=== PATIENT | male | born 1970 | race African-American/Black ===

== ENCOUNTER 2019-01-06 21:09 | Inpatient (IN) | payer SELFPAY ==
[~2019-01-06] VITALS: Ht 180.3 cm; Wt 111.6 kg
[2019-01-06] MEDS ORDERED: hydrALAZINE 20 MG/ML VIAL. IVP ONE (22:00)
[2019-01-06 22:08] LABS: BASO # 0.1 x10^3/uL (0.0-0.2); BASO % 1 % (0-3); EOS # 0.2 x10^3/uL (0.0-0.7); EOS % 2 % (0-3); HEMATOCRIT 39.7 % (39.0-53.0); HEMOGLOBIN 13.1 g/dL (13.0-17.5); LYMPH # 1.7 x10^3/uL (1.0-4.8); LYMPH % 23 % (24-48); MEAN CORPUSCULAR HEMOGLOBIN 29 pg (25-35); MEAN CORPUSCULAR HGB CONC 33 g/dL (31-37); MEAN CORPUSCULAR VOLUME 87 fL (79-100); MONO # 0.8 x10^3/uL (0.0-1.1); MONO % 11 % (0-9); NEUT # 4.6 x10^3/uL (1.8-7.7); NEUT % 63 % (31-73); PLATELET COUNT 326 x10^3/uL (140-400); RED BLOOD COUNT 4.54 x10^6/uL (4.30-5.70); RED CELL DISTRIBUTION WIDTH 16.5 % (11.5-14.5); WHITE BLOOD COUNT 7.3 x10^3/uL (4.0-11.0)
[2019-01-06 22:15] LABS: PROTHROMBIN TIME PATIENT 12.7 SEC (11.7-14.0)
[2019-01-06 22:17] LABS: CALCIUM 8.4 mg/dL (8.5-10.1); CREATININE 1.2 mg/dL (0.7-1.3); GFR 78.2; POTASSIUM 3.4 mmol/L (3.5-5.1)
--- NOTE | 2019-01-06 22:18 | RAD ---
RS Compliance Statement: One or more of the following individualized dose reduction techniques were utilized for this examination: 1. Automated exposure control 2. Adjustment of the mA and/or kV according to patient size 3. Use of iterative reconstruction technique CT head without contrast 01/06/2019 10:04 PM INDICATION: Dizziness COMPARISON: None available TECHNIQUE: Multiple axial CT images of the head were obtained from skull base through the vertex without intravenous contrast. FINDINGS: Head: Ventricles, sulci and basal cisterns are within normal limits. There is no hydrocephalus. Auguste-white matter differentiation is normal. There is no acute intracranial hemorrhage. There is no mass, mass effect or midline shift. Posterior fossa is normal in appearance. Or calcification is identified in the region of the pineal gland. There may be a pineal cyst measuring approximately 9 mm. Visualized portions of the orbits are normal. Paranasal sinuses are well aerated. Mastoid air cells are well aerated. Scalp and calvaria are normal. IMPRESSION: No acute intracranial hemorrhage. There may be a pineal cyst measuring approximately 9 mm. This may be further characterized with nonemergent MRI. Electronically signed by: Viktoria Alan MD (01/06/2019 10:16 PM) [facility]
[2019-01-06 22:23] LABS: ALBUMIN 3.2 g/dL (3.4-5.0); ALBUMIN/GLOBULIN RATIO 0.8 (1.0-1.7); MAGNESIUM 2.2 mg/dL (1.8-2.4); TOTAL BILIRUBIN 0.3 mg/dL (0.2-1.0); TOTAL PROTEIN 7.4 g/dL (6.4-8.2)
[2019-01-06 23:01] LABS: AMPHETAMINE/METHAMPHETAMINE POS (NEG); BARBITURATES NEG (NEG); BENZODIAZEPINES NEG (NEG); CANNABINOIDS NEG (NEG); COCAINE NEG (NEG); METHADONE NEG (NEG); OPIATES NEG (NEG); PHENCYCLIDINE NEG (NEG)
--- NOTE | 2019-01-06 23:08 | RAD ---
Chest radiograph 01/06/2019 9:54 PM INDICATION: Dizziness and high blood pressure COMPARISON: None available TECHNIQUE: Frontal and lateral views of the chest are provided. FINDINGS: The cardiomediastinal silhouette is within normal limits. There are no pleural effusions. There is no pulmonary vascular congestion. There is no pneumothorax. The lungs are clear. No significant osseous abnormality is identified. IMPRESSION: No acute cardiopulmonary process. Electronically signed by: Viktoria Alan MD (01/06/2019 11:05 PM) [facility]
--- NOTE | 2019-01-06 23:27 | PHYS DOC ---
Past Medical History Past Medical History: Hypertension Past Surgical History: Other Additional Past Surgical Histo: RIGHT ANKLE Alcohol Use: Sober Drug Use: Methamphetamine Social History Narrative: LAST USED METHAMPHETAMINE "1 YEAR" Adult General Chief Complaint Chief Complaint: MULTIPLE COMPLAINTS HPI HPI Patient is a 48 year old male with history of hypertension who presents with complaining of high blood pressure and paralized episodes. Patient states he had history of hypertension but for the last 6 months did not take any medication for his hypertension and feces blood pressure is high and headache. Patient also complaining of episode of paralyzed for 20 seconds for the last 2 weeks that happened several times a day and unable to move his upper and lower extremities or colic. Patient denies using drugs or alcohol or having other medical problem. Review of Systems Review of Systems Constitutional: Denies fever or chills [] Eyes: Denies change in visual acuity, redness, or eye pain [] HENT: Denies nasal congestion or sore throat [] Respiratory: Denies cough or shortness of breath [] Cardiovascular: No additional information not addressed in HPI [] GI: Denies abdominal pain, nausea, vomiting, bloody stools or diarrhea [] : Denies dysuria or hematuria [] Musculoskeletal: Denies back pain or joint pain [] Integument: Denies rash or skin lesions [] Neurologic: Denies headache, focal weakness or sensory changes [] Endocrine: Denies polyuria or polydipsia [] All other systems were reviewed and found to be within normal limits, except as documented in this note. Current Medications Current Medications Current Medications Medications (Trade) Dose Ordered Sig/Percy Start Time Stop Time Status Last Admin Dose Admin Hydralazine HCl (Apresoline Inj) 10 mg 1X ONCE 01/06/19 22:00 01/06/19 22:01 DC 01/06/19 22:45 10 MG Allergies Allergies Allergies Coded Allergies Type Severity Reaction Last Updated Verified lisinopril Allergy Unknown Swelling 01/06/19 Yes Physical Exam Physical Exam Constitutional: Well developed, well nourished, no acute distress, non-toxic appearance. [] HENT: Normocephalic, atraumatic, bilateral external ears normal, oropharynx moist, no oral exudates, nose normal. [] Eyes: PERRLA, EOMI, conjunctiva normal, no discharge. [] Neck: Normal range of motion, no tenderness, supple, no stridor. [] Cardiovascular:Heart rate regular rhythm, no murmur [] Lungs & Thorax: Bilateral breath sounds clear to auscultation [] Abdomen: Bowel sounds normal, soft, no tenderness, no masses, no pulsatile masses. [] Skin: Warm, dry, no erythema, no rash. [] Back: No tenderness, no CVA tenderness. [] Extremities: No tenderness, no cyanosis, no clubbing, ROM intact, no edema. [] Neurologic: Alert and oriented X 3, normal motor function, normal sensory function, no focal deficits noted. [] Psychologic: Affect normal, judgement normal, mood normal. [] Current Patient Data Vital Signs Vital Signs Date Time Temp Pulse Resp B/P (MAP) Pulse Ox O2 Delivery O2 Flow Rate FiO2 01/06/19 23:15 88 18 200/93 (128) 96 Room Air 01/06/19 21:17 97.8 97.8 Lab Values Laboratory Tests Test 01/06/19 21:20 01/06/19 22:44 White Blood Count 7.3 x10^3/uL (4.0-11.0) Red Blood Count 4.54 x10^6/uL (4.30-5.70) Hemoglobin 13.1 g/dL (13.0-17.5) Hematocrit 39.7 % (39.0-53.0) Mean Corpuscular Volume 87 fL (79-100) Mean Corpuscular Hemoglobin 29 pg (25-35) Mean Corpuscular Hemoglobin Concent 33 g/dL (31-37) Red Cell Distribution Width 16.5 % (11.5-14.5) H Platelet Count 326 x10^3/uL (140-400) Neutrophils (%) (Auto) 63 % (31-73) Lymphocytes (%) (Auto) 23 % (24-48) L Monocytes (%) (Auto) 11 % (0-9) H Eosinophils (%) (Auto) 2 % (0-3) Basophils (%) (Auto) 1 % (0-3) Neutrophils # (Auto) 4.6 x10^3/uL (1.8-7.7) Lymphocytes # (Auto) 1.7 x10^3/uL (1.0-4.8) Monocytes # (Auto) 0.8 x10^3/uL (0.0-1.1) Eosinophils # (Auto) 0.2 x10^3/uL (0.0-0.7) Basophils # (Auto) 0.1 x10^3/uL (0.0-0.2) Prothrombin Time 12.7 SEC (11.7-14.0) Prothrombin Time INR 1.0 (0.8-1.1) Sodium Level 144 mmol/L (136-145) Potassium Level 3.4 mmol/L (3.5-5.1) L Chloride Level 105 mmol/L (98-107) Carbon Dioxide Level 26 mmol/L (21-32) Anion Gap 13 (6-14) Blood Urea Nitrogen 10 mg/dL (8-26) Creatinine 1.2 mg/dL (0.7-1.3) Estimated GFR (Cockcroft-Gault) 78.2 BUN/Creatinine Ratio 8 (6-20) Glucose Level 148 mg/dL (70-99) H Calcium Level 8.4 mg/dL (8.5-10.1) L Magnesium Level 2.2 mg/dL (1.8-2.4) Total Bilirubin 0.3 mg/dL (0.2-1.0) Aspartate Amino Transferase (AST) 26 U/L (15-37) Alanine Aminotransferase (ALT) 23 U/L (16-63) Alkaline Phosphatase 61 U/L (46-116) Creatine Kinase 612 U/L (39-308) H Troponin I Quantitative 0.038 ng/mL (0.000-0.055) OI-Yeh-Y-Type Natriuretic Peptide 131 pg/mL (0-124) H Total Protein 7.4 g/dL (6.4-8.2) Albumin 3.2 g/dL (3.4-5.0) L Albumin/Globulin Ratio 0.8 (1.0-1.7) L Urine Opiates Screen Neg (NEG) Urine Methadone Screen Neg (NEG) Urine Barbiturates Neg (NEG) Urine Phencyclidine Screen Neg (NEG) Urine Amphetamine/Methamphetamine Pos (NEG) Urine Benzodiazepines Screen Neg (NEG) Urine Cocaine Screen Neg (NEG) Urine Cannabinoids Screen Neg (NEG) Urine Ethyl Alcohol Neg (NEG) Laboratory Tests 01/06/19 21:20 Laboratory Tests 01/06/19 21:20 EKG EKG EKG interpreted by me. EKG at 2126 showed normal sinus rhythm at rate of 78, left abrams axis, T-wave abnormalities in inferior leads, prolonged QT at 416, no acute ST and T-wave abnormalities. Radiology/Procedures Radiology/Procedures [][facility] [address] [place] [address] IMAGING REPORT Signed PATIENT: NERY TORREZ: [id number] : 1970 LOCATION: ER AGE: 48 SEX: M EXAM STATUS: REG ER ORD. PHYSICIAN: NICKI LITTLE MD REASON: dizziness and high blood pressure PROCEDURE: CHEST PA & LATERAL Chest radiograph 01/06/2019 9:54 PM INDICATION: Dizziness and high blood pressure COMPARISON: None available TECHNIQUE: Frontal and lateral views of the chest are provided. FINDINGS: The cardiomediastinal silhouette is within normal limits. There are no pleural effusions. There is no pulmonary vascular congestion. There is no pneumothorax. The lungs are clear. No significant osseous abnormality is identified. IMPRESSION: No acute cardiopulmonary process. Electronically signed by: Zenon Santiago MD (01/06/2019 11:05 PM) [facility] [address] [place] [address] IMAGING REPORT Signed PATIENT: NERY TORREZ: [id number] : 1970 LOCATION: ER AGE: 48 SEX: M EXAM STATUS: REG ER ORD. PHYSICIAN: NICKI LITTLE MD REASON: dizziness PROCEDURE: CT HEAD WO CONTRAST PQRS Compliance Statement: One or more of the following individualized dose reduction techniques were utilized for this examination: 1. Automated exposure control 2. Adjustment of the mA and/or kV according to patient size 3. Use of iterative reconstruction technique CT head without contrast 01/06/2019 10:04 PM INDICATION: Dizziness COMPARISON: None available TECHNIQUE: Multiple axial CT images of the head were obtained from skull base through the vertex without intravenous contrast. FINDINGS: Head: Ventricles, sulci and basal cisterns are within normal limits. There is no hydrocephalus. Auguste-white matter differentiation is normal. There is no acute intracranial hemorrhage. There is no mass, mass effect or midline shift. Posterior fossa is normal in appearance. Or calcification is identified in the region of the pineal gland. There may be a pineal cyst measuring approximately 9 mm. Visualized portions of the orbits are normal. Paranasal sinuses are well aerated. Mastoid air cells are well aerated. Scalp and calvaria are normal. IMPRESSION: No acute intracranial hemorrhage. There may be a pineal cyst measuring approximately 9 mm. This may be further characterized with nonemergent MRI. Electronically signed by: Zenon Santiago MD (01/06/2019 10:16 PM) [facility] DICTATED and SIGNED BY: ZENON SANTIAGO MD DATE: 01/06/192215 DICTATED and SIGNED BY: ZENON SANTIAGO MD DATE: 01/06/192304 Course & Med Decision Making Course & Med Decision Making Pertinent Labs and Imaging studies reviewed. (See chart for details) Evaluation of patient in ER showed 48-year-old male patient without taking blood pressure medication for several months and blood pressure more than 200 several checking to ER that did not get better with medication. Patient had positive methamphetamine abuse and states that he took at all today feeling better. Patient requiring admission for further evaluation and treatment. Discussed with Dr. Mackey who is in agreement with admission. Discussed findings and plan with patient and family, who acknowledge understanding and agreement. Dragon Disclaimer Dragon Disclaimer This electronic medical record was generated, in whole or in part, using a voice recognition dictation system. Departure Departure Impression: Primary Impression: Hypertensive urgency Additional Impressions: Headache Methamphetamine abuse Pineal gland cyst Disposition: ADMITTED INPATIENT (at 2324) Admitting Physician: HIMS (Dr. Mackey accepted admission) Condition: IMPROVED Referrals: NO PCP (PCP) Problem Qualifiers Additional Impressions: Headache Headache type: unspecified Headache chronicity pattern: unspecified pattern Intractability: not intractable Qualified Codes: R51 - Headache NICKI LITTLE MD Jan 06, 2019 23:27
[2019-01-06] MEDS ORDERED: KETOROLAC 30 MG/ML VIAL. IV ONE (23:30)
--- NOTE | 2019-01-07 04:08 | NUR ---
Pt.arrived from ED via w/c around 0400 w/ HTN. He is A/O x4 and will make needs known. Family @ BS.
[2019-01-07 04:29] VITALS: BP 172/87
[2019-01-07] MEDS ORDERED: ACETAMINOPHEN 325 MG TABLET. PO PRN ×2 (05:30→16:45)
--- NOTE | 2019-01-07 06:17 | EKG ---
[facility] [address] [place] [address] Test Date: 2019-01-06 Test Time: 21:26:38 Pat Name: NERY TORREZ Department: Room: [facility] Gender: M Door Attendant: : 1970 Requested By: NICKI LITTLE Order Number: [id number] Reading MD: Felipe Plaza MD Measurements Intervals Holcomb Rate: 78 P: 34 NE: 142 QRS: -11 QRSD: 92 T: -9 QT: 416 QTc: 478 Interpretive Statements SINUS RHYTHM ANTERIOR TWI SUGGESTIVE ISCHEMIA Electronically Signed On 01-08-2019 17:00:49 CDT by Felipe Plaza MD
[2019-01-07 07:00] VITALS: BP 156/80
[2019-01-07 11:07] VITALS: BP 169/91
--- NOTE | 2019-01-07 11:46 | PDOC1 ---
History and Physical Date of Admission Date of Admission DATE: 01/07/19 TIME: 11:45 Identification/Chief Complaint Chief Complaint seen in er, 48 year old male with history of hypertension who presents with complaining of high blood pressure and tia LIKE episodes. Patient states he had history of hypertension but for the last 6 months, has been noncompliant with his meds, no pcp visit x 6 months Patient also complaining of episode of being UNABLE TO MOVE for 20 seconds or speak. 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 admits to high sodium diet, weight gain Patient denies using drugs or alcohol Past Medical History Past Medical History Past Medical History Past Medical History: Hypertension Past Surgical History: Other Additional Past Surgical Histo: RIGHT ANKLE Alcohol Use: Sober Drug Use: Methamphetamine Social History Narrative: LAST USED METHAMPHETAMINE "1 YEAR" family hx obesity Family History Family History: Hypertension Social History ALCOHOL: social Drugs: Crystal meth Current Problem List Problem List Problems Medical Problems: (1) Headache Status: Acute (2) Hypertensive urgency Status: Acute (3) Methamphetamine abuse Status: Acute (4) Pineal gland cyst Status: Acute Current Medications Current Medications Current Medications Hydralazine HCl (Apresoline Inj) 10 mg 1X ONCE IVP Last administered on 01/06/19at 22:45; Start 01/06/19 at 22:00; Stop 01/06/19 at 22:01; Status DC Ketorolac Tromethamine (Toradol 30mg Vial) 30 mg 1X ONCE IV Last administered on 01/06/19at 23:43; Start 01/06/19 at 23:30; Stop 01/06/19 at 23:31; Status DC Acetaminophen (Tylenol) 650 mg PRN Q6HRS PRN PO MILD PAIN / TEMP Last admini stered on 01/07/19at 05:45; Start 01/07/19 at 05:30 Allergies Allergies: Coded Allergies: lisinopril (Verified Allergy, Unknown, Swelling, 01/06/19) ANGIOEDEMA ROS Review of System Review of Systems Review of Systems Constitutional: Denies fever or chills [] Eyes: Denies change in visual acuity, redness, or eye pain [] HENT: Denies nasal congestion or sore throat [] Respiratory: Denies cough or shortness of breath [] Cardiovascular: No additional information not addressed in HPI [] GI: Denies abdominal pain, nausea, vomiting, bloody stools or diarrhea [] : Denies dysuria or hematuria [] Musculoskeletal: Denies back pain or joint pain [] Integument: Denies rash or skin lesions [] Neurologic: Denies headache, focal weakness or sensory changes [] Endocrine: Denies polyuria or polydipsia [] 14 PT systems were reviewed and found to be within normal limits, except as documented . Physical Exam Physical Exam Physical Exam Physical Exam Constitutional: Well developed, well nourished, no acute distress, non-toxic appearance. [] HENT: Normocephalic, atraumatic, bilateral external ears normal, oropharynx moist, no oral exudates, nose normal. [] Eyes: PERRLA, EOMI, conjunctiva normal, no discharge. [] Neck: Normal range of motion, no tenderness, supple, no stridor. [] Cardiovascular:Heart rate regular rhythm, no murmur [] Lungs & Thorax: Bilateral breath sounds clear to auscultation [] Abdomen: Bowel sounds normal, soft, no tenderness, no masses, no pulsatile masses. [] Skin: Warm,lower leg patchy dry rash. [] Back: No tenderness, no CVA tenderness. [] Extremities: No tenderness, no cyanosis, no clubbing, ROM intact, no edema. [] Neurologic: Alert and oriented X 3, normal motor function, normal sensory function, no focal deficits noted. [] Psychologic: Affect normal, judgement normal, mood normal. [] General: Alert, Oriented X3, Cooperative, No acute distress HEENT: Atraumatic Lungs: Clear to auscultation Breasts: Not examined Abdomen: Normal bowel sounds, Soft Rectal Exam: not examined Extremities: No cyanosis Neuro: Normal speech, Cranial nerves 3-12 NL Psych/Mental Status: Mental status NL, Mood NL Vitals Vitals Vital Signs Date Time Temp Pulse Resp B/P (MAP) Pulse Ox O2 Delivery O2 Flow Rate FiO2 01/07/19 11:07 98.3 57 18 169/91 (117) 97 Room Air 98.3 Labs Labs Laboratory Tests Test 01/06/19 21:20 01/06/19 22:44 White Blood Count 7.3 x10^3/uL (4.0-11.0) Red Blood Count 4.54 x10^6/uL (4.30-5.70) Hemoglobin 13.1 g/dL (13.0-17.5) Hematocrit 39.7 % (39.0-53.0) Mean Corpuscular Volume 87 fL (79-100) Mean Corpuscular Hemoglobin 29 pg (25-35) Mean Corpuscular Hemoglobin Concent 33 g/dL (31-37) Red Cell Distribution Width 16.5 % (11.5-14.5) Platelet Count 326 x10^3/uL (140-400) Neutrophils (%) (Auto) 63 % (31-73) Lymphocytes (%) (Auto) 23 % (24-48) Monocytes (%) (Auto) 11 % (0-9) Eosinophils (%) (Auto) 2 % (0-3) Basophils (%) (Auto) 1 % (0-3) Neutrophils # (Auto) 4.6 x10^3/uL (1.8-7.7) Lymphocytes # (Auto) 1.7 x10^3/uL (1.0-4.8) Monocytes # (Auto) 0.8 x10^3/uL (0.0-1.1) Eosinophils # (Auto) 0.2 x10^3/uL (0.0-0.7) Basophils # (Auto) 0.1 x10^3/uL (0.0-0.2) Prothrombin Time 12.7 SEC (11.7-14.0) Prothromb Time International Ratio 1.0 (0.8-1.1) Sodium Level 144 mmol/L (136-145) Potassium Level 3.4 mmol/L (3.5-5.1) Chloride Level 105 mmol/L (98-107) Carbon Dioxide Level 26 mmol/L (21-32) Anion Gap 13 (6-14) Blood Urea Nitrogen 10 mg/dL (8-26) Creatinine 1.2 mg/dL (0.7-1.3) Estimated GFR (Cockcroft-Gault) 78.2 BUN/Creatinine Ratio 8 (6-20) Glucose Level 148 mg/dL (70-99) Calcium Level 8.4 mg/dL (8.5-10.1) Magnesium Level 2.2 mg/dL (1.8-2.4) Total Bilirubin 0.3 mg/dL (0.2-1.0) Aspartate Amino Transf (AST/SGOT) 26 U/L (15-37) Alanine Aminotransferase (ALT/SGPT) 23 U/L (16-63) Alkaline Phosphatase 61 U/L (46-116) Creatine Kinase 612 U/L (39-308) Troponin I Quantitative 0.038 ng/mL (0.000-0.055) GW-Sqy-S-Type Natriuretic Peptide 131 pg/mL (0-124) Total Protein 7.4 g/dL (6.4-8.2) Albumin 3.2 g/dL (3.4-5.0) Albumin/Globulin Ratio 0.8 (1.0-1.7) Urine Opiates Screen Neg (NEG) Urine Methadone Screen Neg (NEG) Urine Barbiturates Neg (NEG) Urine Phencyclidine Screen Neg (NEG) Urine Amphetamine/Methamphetamine Pos (NEG) Urine Benzodiazepines Screen Neg (NEG) Urine Cocaine Screen Neg (NEG) Urine Cannabinoids Screen Neg (NEG) Urine Ethyl Alcohol Neg (NEG) Laboratory Tests Test 01/06/19 21:20 01/06/19 22:44 White Blood Count 7.3 x10^3/uL (4.0-11.0) Red Blood Count 4.54 x10^6/uL (4.30-5.70) Hemoglobin 13.1 g/dL (13.0-17.5) Hematocrit 39.7 % (39.0-53.0) Mean Corpuscular Volume 87 fL (79-100) Mean Corpuscular Hemoglobin 29 pg (25-35) Mean Corpuscular Hemoglobin Concent 33 g/dL (31-37) Red Cell Distribution Width 16.5 % (11.5-14.5) Platelet Count 326 x10^3/uL (140-400) Neutrophils (%) (Auto) 63 % (31-73) Lymphocytes (%) (Auto) 23 % (24-48) Monocytes (%) (Auto) 11 % (0-9) Eosinophils (%) (Auto) 2 % (0-3) Basophils (%) (Auto) 1 % (0-3) Neutrophils # (Auto) 4.6 x10^3/uL (1.8-7.7) Lymphocytes # (Auto) 1.7 x10^3/uL (1.0-4.8) Monocytes # (Auto) 0.8 x10^3/uL (0.0-1.1) Eosinophils # (Auto) 0.2 x10^3/uL (0.0-0.7) Basophils # (Auto) 0.1 x10^3/uL (0.0-0.2) Prothrombin Time 12.7 SEC (11.7-14.0) Prothromb Time International Ratio 1.0 (0.8-1.1) Sodium Level 144 mmol/L (136-145) Potassium Level 3.4 mmol/L (3.5-5.1) Chloride Level 105 mmol/L (98-107) Carbon Dioxide Level 26 mmol/L (21-32) Anion Gap 13 (6-14) Blood Urea Nitrogen 10 mg/dL (8-26) Creatinine 1.2 mg/dL (0.7-1.3) Estimated GFR (Cockcroft-Gault) 78.2 BUN/Creatinine Ratio 8 (6-20) Glucose Level 148 mg/dL (70-99) Calcium Level 8.4 mg/dL (8.5-10.1) Magnesium Level 2.2 mg/dL (1.8-2.4) Total Bilirubin 0.3 mg/dL (0.2-1.0) Aspartate Amino Transf (AST/SGOT) 26 U/L (15-37) Alanine Aminotransferase (ALT/SGPT) 23 U/L (16-63) Alkaline Phosphatase 61 U/L (46-116) Creatine Kinase 612 U/L (39-308) Troponin I Quantitative 0.038 ng/mL (0.000-0.055) DJ-Xfa-L-Type Natriuretic Peptide 131 pg/mL (0-124) Total Protein 7.4 g/dL (6.4-8.2) Albumin 3.2 g/dL (3.4-5.0) Albumin/Globulin Ratio 0.8 (1.0-1.7) Urine Opiates Screen Neg (NEG) Urine Methadone Screen Neg (NEG) Urine Barbiturates Neg (NEG) Urine Phencyclidine Screen Neg (NEG) Urine Amphetamine/Methamphetamine Pos (NEG) Urine Benzodiazepines Screen Neg (NEG) Urine Cocaine Screen Neg (NEG) Urine Cannabinoids Screen Neg (NEG) Urine Ethyl Alcohol Neg (NEG) Images Images SEX: M EXAM STATUS: REG ER ORD. PHYSICIAN: NICKI LITTLE MD REASON: dizziness and high blood pressure PROCEDURE: CHEST PA & LATERAL Chest radiograph 01/06/2019 9:54 PM INDICATION: Dizziness and high blood pressure COMPARISON: None available TECHNIQUE: Frontal and lateral views of the chest are provided. FINDINGS: The cardiomediastinal silhouette is within normal limits. There are no pleural effusions. There is no pulmonary vascular congestion. There is no pneumothorax. The lungs are clear. No significant osseous abnormality is identified. IMPRESSION: No acute cardiopulmonary process. Electronically signed by: Viktoria Alan MD (01/06/2019 11:05 PM) [facility] PROCEDURE: CT HEAD WO CONTRAST PQRS Compliance Statement: One or more of the following individualized dose reduction techniques were utilized for this examination: 1. Automated exposure control 2. Adjustment of the mA and/or kV according to patient size 3. Use of iterative reconstruction technique CT head without contrast 01/06/2019 10:04 PM INDICATION: Dizziness COMPARISON: None available TECHNIQUE: Multiple axial CT images of the head were obtained from skull base through the vertex without intravenous contrast. FINDINGS: Head: Ventricles, sulci and basal cisterns are within normal limits. There is no hydrocephalus. Auguste-white matter differentiation is normal. There is no acute intracranial hemorrhage. There is no mass, mass effect or midline shift. Posterior fossa is normal in appearance. Or calcification is identified in the region of the pineal gland. There may be a pineal cyst measuring approximately 9 mm. Visualized portions of the orbits are normal. Paranasal sinuses are well aerated. Mastoid air cells are well aerated. Scalp and calvaria are normal. IMPRESSION: No acute intracranial hemorrhage. There may be a pineal cyst measuring approximately 9 mm. This may be further characterized with nonemergent MRI. Electronically signed by: Viktoria Alan MD (01/06/2019 10:16 PM) [facility] VTE Prophylaxis Ordered VTE Prophylaxis Devices: No VTE Pharmacological Prophylaxi: Yes Assessment/Plan Assessment/Plan IMPRESSION: No acute intracranial hemorrhage. 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 This may be further characterized with nonemergent MRI. morbid obesity HX METH ABUSE POS IN URINE noncompliance PLAN IV BP CONTROL ADMIT Neurology consult, suspect stroke like symptoms tele echo UDS NORVASC 5 MG PO DAILY HCTZ 12.5 MG PO DAILY LOW NA INTAKE DVT PROPHYLAXIS neurochecks q 4 hrs cardiology consult PT/OT/ST 76 MIN PT EXAM, CHART REVIEW, > 50% OF TIME SPENT WITH EXAM, CHART REVIEW, PT CARE COORDINATION JEN JIMENEZ MD Jan 07, 2019 11:46
[2019-01-07 15:00] VITALS: BP 168/101
[2019-01-07] MEDS ORDERED: ALBUTEROL SULFATE 2.5 MG/3 ML NEBU. NEB PRN (16:45)
[2019-01-07] MEDS ORDERED: MAG HYDROX/ALUMINUM HYD/SIMETH 30 ML ORAL.SUSP PO PRN (16:45)
[2019-01-07] MEDS ORDERED: SODIUM PHOSPHATES 19/7GM 133 ML ENEMA. PR PRN (16:45)
[2019-01-07] MEDS ORDERED: amLODIPine BESYLATE 5 MG TABLET PO ONE (16:45)
[2019-01-07] MEDS ORDERED: 0.9 % SODIUM CHLORIDE 10 ML DISP.SYRIN. IV PRN (16:45)
[2019-01-07] MEDS ORDERED: cloNIDine HCL 0.1 MG TABLET PO PRN (16:45)
[2019-01-07] MEDS ORDERED: DOCUSATE SODIUM 100 MG CAPSULE. PO PRN (16:45)
[2019-01-07] MEDS ORDERED: guaiFENesin ORAL 200 MG/10 ML LIQUID. PO PRN (16:45)
[2019-01-07] MEDS ORDERED: ONDANSETRON PF 4 MG/2 ML VIAL. IV PRN (16:45)
[2019-01-07] MEDS ORDERED: LORazepam 0.5 MG TABLET PO PRN (16:45)
[2019-01-07] MEDS ORDERED: POTASSIUM CHLORIDE 20 MEQ TABLET.ER. PO ONE (17:00)
[2019-01-07 19:47] VITALS: BP 168/82
[2019-01-07] MEDS ORDERED: ENOXAPARIN 40 MG/0.4 ML SYRINGE. SQ SCH (21:00)
[2019-01-07 23:04] VITALS: BP 160/82
[2019-01-08 03:59] VITALS: BP 154/100
[2019-01-08 05:54] LABS: CALCIUM 8.3 mg/dL (8.5-10.1); CREATININE 1.1 mg/dL (0.7-1.3); GFR 86.4; POTASSIUM 3.8 mmol/L (3.5-5.1)
[2019-01-08 07:57] VITALS: BP 154/83
[2019-01-08] MEDS ORDERED: POTASSIUM CHLORIDE 20 MEQ TABLET.ER. PO SCH (08:00)
[2019-01-08] MEDS ORDERED: amLODIPine BESYLATE 5 MG TABLET PO SCH (09:00)
--- NOTE | 2019-01-08 09:57 | PDOC ---
PROGRESS NOTES History of Present Illness History of Present Illness VTE Prophylaxis Ordered VTE Prophylaxis Devices: No VTE Pharmacological Prophylaxi: Yes Assessment/Plan Assessment/Plan IMPRESSION: No acute intracranial hemorrhage. 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 This may be further characterized with nonemergent MRI. morbid obesity HX METH ABUSE POS IN URINE noncompliance PLAN IV BP CONTROL ADMIT Neurology consult, suspect stroke like symptoms tele echo UDS NORVASC 5 MG PO DAILY HCTZ 12.5 MG PO DAILY LOW NA INTAKE DVT PROPHYLAXIS neurochecks q 4 hrs cardiology consult PT/OT/ST 36 MIN PT EXAM, CHART REVIEW, > 50% OF TIME SPENT WITH EXAM, CHART REVIEW, PT CARE COORDINATION Vitals Vitals Vital Signs Date Time Temp Pulse Resp B/P (MAP) Pulse Ox O2 Delivery O2 Flow Rate FiO2 01/08/19 09:11 70 154/83 01/08/19 08:00 Room Air 01/08/19 07:57 98.4 20 99 98.4 Physical Exam General: Alert, Oriented X3, Cooperative, No acute distress Heart: Regular rate, Normal S1 Lungs: Clear Abdomen: Normal bowel sounds, Soft Extremities: No clubbing, No cyanosis, No edema Labs LABS TDI E/Lateral E' 7.8 E/Medial E' 10.0 Pulmonary Valve PV Peak Velocity 116.4cm/s PV Peak Grad. 5mmHg Tricuspid Valve TR P. Velocity 288cm/s RAP ESTIMATE 3mmHg TR Peak Gr. 38mmHg RVSP 41mmHg Pulmonary Vein S1 Velocity 57.0cm/s D2 Velocity 58.7cm/s PVa duration 141msec LEFT VENTRICLE The Left Ventricle is mildly dilated. There is moderate concentric left ventricular hypertrophy. The left ventricular systolic function is normal and the ejection fraction is within normal range. The Ejection Fraction is 55-60%. There is normal LV segmental wall motion. Transmitral Doppler flow pattern is Grade II-pseudonormal filling dynamics. RIGHT VENTRICLE The right ventricle is mildly dilated. The right ventricle is mildly hypertrophied. The right ventricular systolic function is normal. ATRIA The left atrium is mildly dilated. The right atrium size is normal. The interatrial septum is intact with no evidence for an atrial septal defect or patent foramen ovale as noted on 2-D or Doppler imaging. AORTIC VALVE The aortic valve is normal in structure and function. Doppler and Color Flow revealed trace aortic regurgitation. There is no significant aortic valvular stenosis. MITRAL VALVE The mitral valve is normal in structure and function. There is no evidence of mitral valve prolapse. There is no mitral valve stenosis. Doppler and Color-flow revealed trace mitral regurgitation. TRICUSPID VALVE The tricuspid valve is normal in structure and function. Doppler and Color Flow revealed trace tricuspid regurgitation with an estiamted PAP of 41 mmHg. There is mild pulmonary hypertension. There is no tricuspid valve stenosis. PULMONIC VALVE The pulmonary valve is normal in structure and function. Doppler and Color Flow revealed trace pulmonic valvular regurgitation. There is no pulmonic valvular stenosis. GREAT VESSELS The aortic root is normal in size. The IVC is normal in size and collapses >50% with inspiration. PERICARDIAL EFFUSION There is no evidence of significant pericardial effusion. Critical Notification Critical Value: No <Conclusion> There is moderate concentric left ventricular hypertrophy. The left ventricular systolic function is normal and the ejection fraction is within normal range. The Ejection Fraction is 55-60%. There is normal LV segmental wall motion. The right ventricle is mildly dilated. Doppler and Color Flow revealed trace tricuspid regurgitation with an estiamted PAP of 41 mmHg. There is mild pulmonary hypertension. Signed by : Chay Mcclain, Electronically Approved : 01/08/2019 10:19:41 DICTATED and SIGNED BY: CHAY MCCLAIN MD DATE: 01/08/19 1019 Laboratory Tests Test 01/07/19 18:30 01/08/19 04:30 Troponin I Quantitative 0.018 ng/mL (0.000-0.055) Sodium Level 142 mmol/L (136-145) Potassium Level 3.8 mmol/L (3.5-5.1) Chloride Level 105 mmol/L (98-107) Carbon Dioxide Level 28 mmol/L (21-32) Anion Gap 9 (6-14) Blood Urea Nitrogen 11 mg/dL (8-26) Creatinine 1.1 mg/dL (0.7-1.3) Estimated GFR (Cockcroft-Gault) 86.4 Glucose Level 146 mg/dL (70-99) Calcium Level 8.3 mg/dL (8.5-10.1) Assessment and Plan Assessmemt and Plan Problems Medical Problems: (1) Headache Status: Acute (2) Hypertensive urgency Status: Acute (3) Methamphetamine abuse Status: Acute (4) Pineal gland cyst Status: Acute Comment Review of Relevant I have reviewed the following items violeta (where applicable) has been applied. Labs Laboratory Tests Test 01/06/19 21:20 01/06/19 22:44 01/07/19 18:30 01/08/19 04:30 White Blood Count 7.3 x10^3/uL (4.0-11.0) Red Blood Count 4.54 x10^6/uL (4.30-5.70) Hemoglobin 13.1 g/dL (13.0-17.5) Hematocrit 39.7 % (39.0-53.0) Mean Corpuscular Volume 87 fL (79-100) Mean Corpuscular Hemoglobin 29 pg (25-35) Mean Corpuscular Hemoglobin Concent 33 g/dL (31-37) Red Cell Distribution Width 16.5 % (11.5-14.5) Platelet Count 326 x10^3/uL (140-400) Neutrophils (%) (Auto) 63 % (31-73) Lymphocytes (%) (Auto) 23 % (24-48) Monocytes (%) (Auto) 11 % (0-9) Eosinophils (%) (Auto) 2 % (0-3) Basophils (%) (Auto) 1 % (0-3) Neutrophils # (Auto) 4.6 x10^3/uL (1.8-7.7) Lymphocytes # (Auto) 1.7 x10^3/uL (1.0-4.8) Monocytes # (Auto) 0.8 x10^3/uL (0.0-1.1) Eosinophils # (Auto) 0.2 x10^3/uL (0.0-0.7) Basophils # (Auto) 0.1 x10^3/uL (0.0-0.2) Prothrombin Time 12.7 SEC (11.7-14.0) Prothromb Time International Ratio 1.0 (0.8-1.1) Sodium Level 144 mmol/L (136-145) 142 mmol/L (136-145) Potassium Level 3.4 mmol/L (3.5-5.1) 3.8 mmol/L (3.5-5.1) Chloride Level 105 mmol/L (98-107) 105 mmol/L (98-107) Carbon Dioxide Level 26 mmol/L (21-32) 28 mmol/L (21-32) Anion Gap 13 (6-14) 9 (6-14) Blood Urea Nitrogen 10 mg/dL (8-26) 11 mg/dL (8-26) Creatinine 1.2 mg/dL (0.7-1.3) 1.1 mg/dL (0.7-1.3) Estimated GFR (Cockcroft-Gault) 78.2 86.4 BUN/Creatinine Ratio 8 (6-20) Glucose Level 148 mg/dL (70-99) 146 mg/dL (70-99) Calcium Level 8.4 mg/dL (8.5-10.1) 8.3 mg/dL (8.5-10.1) Magnesium Level 2.2 mg/dL (1.8-2.4) Total Bilirubin 0.3 mg/dL (0.2-1.0) Aspartate Amino Transf (AST/SGOT) 26 U/L (15-37) Alanine Aminotransferase (ALT/SGPT) 23 U/L (16-63) Alkaline Phosphatase 61 U/L (46-116) Creatine Kinase 612 U/L (39-308) Troponin I Quantitative 0.038 ng/mL (0.000-0.055) 0.018 ng/mL (0.000-0.055) RK-Vfo-Z-Type Natriuretic Peptide 131 pg/mL (0-124) Total Protein 7.4 g/dL (6.4-8.2) Albumin 3.2 g/dL (3.4-5.0) Albumin/Globulin Ratio 0.8 (1.0-1.7) Urine Opiates Screen Neg (NEG) Urine Methadone Screen Neg (NEG) Urine Barbiturates Neg (NEG) Urine Phencyclidine Screen Neg (NEG) Urine Amphetamine/Methamphetamine Pos (NEG) Urine Benzodiazepines Screen Neg (NEG) Urine Cocaine Screen Neg (NEG) Urine Cannabinoids Screen Neg (NEG) Urine Ethyl Alcohol Neg (NEG) Laboratory Tests Test 01/07/19 18:30 01/08/19 04:30 Troponin I Quantitative 0.018 ng/mL (0.000-0.055) Sodium Level 142 mmol/L (136-145) Potassium Level 3.8 mmol/L (3.5-5.1) Chloride Level 105 mmol/L (98-107) Carbon Dioxide Level 28 mmol/L (21-32) Anion Gap 9 (6-14) Blood Urea Nitrogen 11 mg/dL (8-26) Creatinine 1.1 mg/dL (0.7-1.3) Estimated GFR (Cockcroft-Gault) 86.4 Glucose Level 146 mg/dL (70-99) Calcium Level 8.3 mg/dL (8.5-10.1) Medications Current Medications Hydralazine HCl (Apresoline Inj) 10 mg 1X ONCE IVP Last administered on 01/06/19at 22:45; Start 01/06/19 at 22:00; Stop 01/06/19 at 22:01; Status DC Ketorolac Tromethamine (Toradol 30mg Vial) 30 mg 1X ONCE IV Last administered on 01/06/19at 23:43; Start 01/06/19 at 23:30; Stop 01/06/19 at 23:31; Status DC Acetaminophen (Tylenol) 650 mg PRN Q6HRS PRN PO MILD PAIN / TEMP Last administered on 01/07/19at 05:45; Start 01/07/19 at 05:30; Stop 01/07/19 at 16:51; Status DC Amlodipine Besylate (Norvasc) 5 mg 1X ONCE PO Last administered on 01/07/19at 16:39; Start 01/07/19 at 16:45; Stop 01/07/19 at 16:46; Status DC Amlodipine Besylate (Norvasc) 5 mg DAILY PO Last administered on 01/08/19at 09:11; Start 01/08/19 at 09:00 Sodium Chloride (Normal Saline Flush) 3 ml QSHIFT PRN IV AFTER MEDS AND BLOOD DRAWS; Start 01/07/19 at 16:45 Ondansetron HCl (Zofran) 4 mg PRN Q4HRS PRN IV NAUSEA/VOMITING; Start 01/07/19 at 16:45 Acetaminophen (Tylenol) 650 mg PRN Q4HRS PRN PO TEMP OVER 100.4F OR MILD PAIN; Start 01/07/19 at 16:45 Al Hydroxide/Mg Hydroxide (Mylanta Plus Xs) 30 ml PRN DAILY PRN PO HEARTBURN / GAS; Start 01/07/19 at 16:45 Clonidine HCl (Catapres) 0.1 mg PRN Q6HRS PRN PO SBP>160 OR DBP>90; Start 01/07/19 at 16:45 Sodium Monofluorophosphate (Fleet Adult) 133 ml PRN DAILY PRN ME CONSTIPATION; Start 01/07/19 at 16:45 Docusate Sodium (Colace) 100 mg PRN BID PRN PO CONSTIPATION; Start 01/07/19 at 16:45 Albuterol Sulfate (Ventolin Neb Soln) 2.5 mg PRN Q4HRS PRN NEB SHORTNESS OF BREATH; Start 01/07/19 at 16:45 Guaifenesin (Robitussin) 200 mg PRN Q4HRS PRN PO COUGH; Start 01/07/19 at 16:45 Lorazepam (Ativan) 0.5 mg PRN Q4HRS PRN PO ANXIETY / AGITATION; Start 01/07/19 at 16:45 Enoxaparin Sodium (Lovenox 40mg Syringe) 40 mg QHS SQ Last administered on 01/07/19at 21:03; Start 01/07/19 at 21:00 Potassium Chloride (Klor-Con) 40 meq 1X ONCE PO Last administered on 01/07/19at 18:18; Start 01/07/19 at 17:00; Stop 01/07/19 at 17:01; Status DC Potassium Chloride (Klor-Con) 20 meq DAILYWBKFT PO Last administered on at 09:11; Start 01/08/19 at 08:00 Vitals/I & O Vital Sign - Last 24 Hours 01/07/19 01/07/19 01/07/19 01/07/19 11:07 15:00 16:39 19:45 Temp 98.3 98.2 98.3 98.2 Pulse 57 63 63 Resp 18 16 B/P (MAP) 169/91 (117) 168/101 (123) 168/101 Pulse Ox 97 95 O2 Delivery Room Air Room Air Room Air 01/07/19 01/07/19 01/08/19 01/08/19 19:47 23:04 03:59 07:57 Temp 98.2 98.2 97.6 98.4 98.2 98.2 97.6 98.4 Pulse 65 68 73 70 Resp 20 20 20 20 B/P (MAP) 168/82 (110) 160/82 (108) 154/100 (118) 154/83 (106) Pulse Ox 98 98 98 99 O2 Delivery Room Air Room Air Room Air Room Air 01/08/19 01/08/19 08:00 09:11 Pulse 70 B/P (MAP) 154/83 O2 Delivery Room Air Intake and Output 01/07/19 01/07/19 01/08/19 14:59 22:59 06:59 Intake Total 650 ml 310 ml 520 ml Output Total 900 ml Balance -250 ml 310 ml 520 ml JEN JIMENEZ MD Jan 08, 2019 09:57
--- NOTE | 2019-01-08 10:20 | CARD ---
MR#: [id number] Date of Study: 01/08/2019 Ordering Physician: JEN JIMENEZ, Referring Physician: Cj FRANZ: Tory Garland APPROVED REPORT EXAM: Two-dimensional and M-mode echocardiogram with Doppler and color Doppler. Other Information Quality : GoodHR: 49bpm INDICATION Hypertension/HCVD RISK FACTORS Hypertension 2D DIMENSIONS RVDd3.4 (2.9-3.5cm)Left Atrium(2D)4.5 (1.6-4.0cm) IVSd1.4 (0.7-1.1cm)Aortic Root(2D)3.3 (2.0-3.7cm) LVDd6.1 (3.9-5.9cm)LVOT Diameter2.2 (1.8-2.4cm) PWd1.3 (0.7-1.1cm)LVDs3.9 (2.5-4.0cm) FS (%) 36.5 %SV123.0 ml LVEF(%)65.3 (>50%) Aortic Valve AoV Peak Charly.153.8cm/sAoV VTI29.8cm AO Peak GR.9.5mmHgLVOT Peak Charly.94.8cm/s LVOT VTI 21.84cmAO Mean GR.4mmHg JULITA (VMAX)1.59hv3QPW (VTI)2.87cm2 Mitral Valve MV E Tbpcilvt27.3cm/sMV DECEL ESXG115dr MV A Dfuxssnb28.6cm/sMV BHQ51dd E/A Ratio1.3MVA (PHT)3.85cm2 TDI E/Lateral E'7.8E/Medial E'10.0 Pulmonary Valve PV Peak Bqwjwhth008.4cm/sPV Peak Grad.5mmHg Tricuspid Valve TR P. Igrhlerl510wm/sRAP BKPDEUTR1rpKd TR Peak Gr.45aoGcMQSO59txZo Pulmonary Vein S1 Pbxcxnjt97.0cm/sD2 Tjejryjv26.7cm/s PVa vgipnlqq832zlby LEFT VENTRICLE The Left Ventricle is mildly dilated. There is moderate concentric left ventricular hypertrophy. The left ventricular systolic function is normal and the ejection fraction is within normal range. The Ej ection Fraction is 55-60%. There is normal LV segmental wall motion. Transmitral Doppler flow pattern is Grade II-pseudonormal filling dynamics. RIGHT VENTRICLE The right ventricle is mildly dilated. The right ventricle is mildly hypertrophied. The right ventric ular systolic function is normal. ATRIA The left atrium is mildly dilated. The right atrium size is normal. The interatrial septum is intact with no evidence for an atrial septal defect or patent foramen ovale as noted on 2-D or Doppler imagi ng. AORTIC VALVE The aortic valve is normal in structure and function. Doppler and Color Flow revealed trace aortic re gurgitation. There is no significant aortic valvular stenosis. MITRAL VALVE The mitral valve is normal in structure and function. There is no evidence of mitral valve prolapse. There is no mitral valve stenosis. Doppler and Color-flow revealed trace mitral regurgitation. TRICUSPID VALVE The tricuspid valve is normal in structure and function. Doppler and Color Flow revealed trace tricus pid regurgitation with an estiamted PAP of 41 mmHg. There is mild pulmonary hypertension. There is no tricuspid valve stenosis. PULMONIC VALVE The pulmonary valve is normal in structure and function. Doppler and Color Flow revealed trace pulmon ic valvular regurgitation. There is no pulmonic valvular stenosis. GREAT VESSELS The aortic root is normal in size. The IVC is normal in size and collapses >50% with inspiration. PERICARDIAL EFFUSION There is no evidence of significant pericardial effusion. Critical Notification Critical Value: No <Conclusion> There is moderate concentric left ventricular hypertrophy. The left ventricular systolic function is normal and the ejection fraction is within normal range. Th e Ejection Fraction is 55-60%. There is normal LV segmental wall motion. The right ventricle is mildly dilated. Doppler and Color Flow revealed trace tricuspid regurgitation with an estiamted PAP of 41 mmHg. There is mild pulmonary hypertension. Signed by : Felipe Plaza, Electronically Approved : 01/08/2019 10:19:41
--- NOTE | 2019-01-08 10:20 | NUR ---
SW following pt for dc needs. Chart reviewed and discussed with RN. Pt lives at home and was seen by PAT team yesterday due to Meth use. Pt states he was sober for 1.5 years after treatment. Denies mental health hx expect life stressors. Pt is provided with NA, AA, RADACC and community resources. No other needs noted at this time.
[2019-01-08 11:29] VITALS: BP 149/79
--- NOTE | 2019-01-08 14:26 | RAD ---
BRAIN W/O CONTRAST History: TIA. Hypertensive encephalopathy. Technique: Multiplanar, multi sequential MR imaging was performed of the brain without contrast. Comparison: CT January 06, 2019 Findings: No acute infarct. No intracranial hemorrhage. No mass effect. No hydrocephalus. Extra-axial spaces are unremarkable. Incidentally noted pineal cyst measures 8 mm. Imaged orbits are unremarkable. Imaged paranasal sinuses and mastoid air cells are clear. Impression: 1. No acute intracranial abnormality. 2. Incidental pineal cyst. Electronically signed by: Cristian Antoine DO (01/08/2019 2:22 PM) [id number]
--- NOTE | 2019-01-08 15:24 | PDOC2 ---
NEUROLOGY CONSULT Date of Admission Date of Admission DATE: 01/08/19 TIME: 15:21 Reason for Consult Reason for Consult: Neurologic symptoms Referring Physician Referring Physician: Dr. Alvarado Source Source: Chart review, Patient History of Present Illness History of Present Illness The patient is a 48-year-old right-handed male with history of hypertension who admits he has not been taking his medications. Over the last several days he has had episodes of waking up from a nap and feeling that he cannot move or speak. He has a mild headache, blurred vision, and occasional numbness. He was found to have elevated blood pressure in the emergency department and is feeling better today. There is no history of stroke, seizure, head injury, and he denies any other symptoms of narcolepsy. Past Medical History Cardiovascular: HTN Past Surgical History Past Surgical History: Other (right ankle) Family History Family History: No pertinent hx Social History Social History nutrition services worker, denies alcohol, tobacco, street drugs Current Medications Current Medications Current Medications Hydralazine HCl (Apresoline Inj) 10 mg 1X ONCE IVP Last administered on 01/06/19at 22:45; Start 01/06/19 at 22:00; Stop 01/06/19 at 22:01; Status DC Ketorolac Tromethamine (Toradol 30mg Vial) 30 mg 1X ONCE IV Last administered on 01/06/19at 23:43; Start 01/06/19 at 23:30; Stop 01/06/19 at 23:31; Status DC Acetaminophen (Tylenol) 650 mg PRN Q6HRS PRN PO MILD PAIN / TEMP Last administered on 01/07/19at 05:45; Start 01/07/19 at 05:30; Stop 01/07/19 at 16:51; Status DC Amlodipine Besylate (Norvasc) 5 mg 1X ONCE PO Last administered on 01/07/19at 16:39; Start 01/07/19 at 16:45; Stop 01/07/19 at 16:46; Status DC Amlodipine Besylate (Norvasc) 5 mg DAILY PO Last administered on 01/08/19at 09:11; Start 01/08/19 at 09:00 Sodium Chloride (Normal Saline Flush) 3 ml QSHIFT PRN IV AFTER MEDS AND BLOOD DRAWS; Start 01/07/19 at 16:45 Ondansetron HCl (Zofran) 4 mg PRN Q4HRS PRN IV NAUSEA/VOMITING; Start 01/07/19 at 16:45 Acetaminophen (Tylenol) 650 mg PRN Q4HRS PRN PO TEMP OVER 100.4F OR MILD PAIN; Start 01/07/19 at 16:45 Al Hydroxide/Mg Hydroxide (Mylanta Plus Xs) 30 ml PRN DAILY PRN PO HEARTBURN / GAS; Start 01/07/19 at 16:45 Clonidine HCl (Catapres) 0.1 mg PRN Q6HRS PRN PO SBP>160 OR DBP>90; Start 01/07/19 at 16:45 Sodium Monofluorophosphate (Fleet Adult) 133 ml PRN DAILY PRN ID CONSTIPATION; Start 01/07/19 at 16:45 Docusate Sodium (Colace) 100 mg PRN BID PRN PO CONSTIPATION; Start 01/07/19 at 16:45 Albuterol Sulfate (Ventolin Neb Soln) 2.5 mg PRN Q4HRS PRN NEB SHORTNESS OF B REATH; Start 01/07/19 at 16:45 Guaifenesin (Robitussin) 200 mg PRN Q4HRS PRN PO COUGH; Start 01/07/19 at 16:45 Lorazepam (Ativan) 0.5 mg PRN Q4HRS PRN PO ANXIETY / AGITATION; Start 01/07/19 at 16:45 Enoxaparin Sodium (Lovenox 40mg Syringe) 40 mg QHS SQ Last administered on 01/07/19at 21:03; Start 01/07/19 at 21:00 Potassium Chloride (Klor-Con) 40 meq 1X ONCE PO Last administered on 01/07/19at 18:18; Start 01/07/19 at 17:00; Stop 01/07/19 at 17:01; Status DC Potassium Chloride (Klor-Con) 20 meq DAILYWBKFT PO Last administered on 01/08/19at 09:11; Start 01/08/19 at 08:00 Allergies Allergies: Coded Allergies: lisinopril (Verified Allergy, Unknown, Swelling, 01/06/19) ANGIOEDEMA ROS Review of System Negative for fever, chills, weight loss, shortness of breath, chest pain, indigestion, hematochezia, melena, and dysuria. Full 14-point review of systems is negative. Physical Exam Physical Examination General: Well-developed, well-nourished black male in no acute distress HEENT: Normocephalic and�atraumatic. Temporal arteries�pulsatile and nontender.�Fundoscopic exam unremarkable Neck: Supple without bruit, no meningismus� Musculoskeletal: Stability:�see neurologic. Gait exam:�see neurologic. Tone:�see neurologic.�Strength:�see neurologic.� Neurological: Mental Status:�intact, orientation, memory, attention span/concentration, language, fund of knowledge normal. Cranial Nerves:�Pupils equal and reactive to light, extraocular movements are�intact, visual dunlap are full to confrontation. Facial sensation is normal. There is no facial asymmetry. Vestibulo-ocular reflex is intact. Palate elevates and tongue protrudes in midline. All other cranial related problems are negative except as mentioned before.�Reflexes:�2+ and symmetric with flexor plantar responses. Motor:�5/5 strength with normal tone and bulk. Coordination:�Finger-nose finger and pore-bq-pmmb testing are normal. Rapid alternating movements and fine finger movements are intact. Gait:�Normal, including tandem. Sensory:�Normal pinprick, vibration, light touch, proprioception.� Vitals VITALS Vital Signs Date Time Temp Pulse Resp B/P (MAP) Pulse Ox O2 Delivery O2 Flow Rate FiO2 01/08/19 11:29 98.0 72 18 149/79 (102) 97 Room Air 98.0 Labs Labs Laboratory Tests Test 01/06/19 21:20 01/06/19 22:44 01/07/19 18:30 01/08/19 04:30 White Blood Count 7.3 x10^3/uL (4.0-11.0) Red Blood Count 4.54 x10^6/uL (4.30-5.70) Hemoglobin 13.1 g/dL (13.0-17.5) Hematocrit 39.7 % (39.0-53.0) Mean Corpuscular Volume 87 fL (79-100) Mean Corpuscular Hemoglobin 29 pg (25-35) Mean Corpuscular Hemoglobin Concent 33 g/dL (31-37) Red Cell Distribution Width 16.5 % (11.5-14.5) Platelet Count 326 x10^3/uL (140-400) Neutrophils (%) (Auto) 63 % (31-73) Lymphocytes (%) (Auto) 23 % (24-48) Monocytes (%) (Auto) 11 % (0-9) Eosinophils (%) (Auto) 2 % (0-3) Basophils (%) (Auto) 1 % (0-3) Neutrophils # (Auto) 4.6 x10^3/uL (1.8-7.7) Lymphocytes # (Auto) 1.7 x10^3/uL (1.0-4.8) Monocytes # (Auto) 0.8 x10^3/uL (0.0-1.1) Eosinophils # (Auto) 0.2 x10^3/uL (0.0-0.7) Basophils # (Auto) 0.1 x10^3/uL (0.0-0.2) Prothrombin Time 12.7 SEC (11.7-14.0) Prothromb Time International Ratio 1.0 (0.8-1.1) Sodium Level 144 mmol/L (136-145) 142 mmol/L (136-145) Potassium Level 3.4 mmol/L (3.5-5.1) 3.8 mmol/L (3.5-5.1) Chloride Level 105 mmol/L (98-107) 105 mmol/L (98-107) Carbon Dioxide Level 26 mmol/L (21-32) 28 mmol/L (21-32) Anion Gap 13 (6-14) 9 (6-14) Blood Urea Nitrogen 10 mg/dL (8-26) 11 mg/dL (8-26) Creatinine 1.2 mg/dL (0.7-1.3) 1.1 mg/dL (0.7-1.3) Estimated GFR (Cockcroft-Gault) 78.2 86.4 BUN/Creatinine Ratio 8 (6-20) Glucose Level 148 mg/dL (70-99) 146 mg/dL (70-99) Calcium Level 8.4 mg/dL (8.5-10.1) 8.3 mg/dL (8.5-10.1) Magnesium Level 2.2 mg/dL (1.8-2.4) Total Bilirubin 0.3 mg/dL (0.2-1.0) Aspartate Amino Transf (AST/SGOT) 26 U/L (15-37) Alanine Aminotransferase (ALT/SGPT) 23 U/L (16-63) Alkaline Phosphatase 61 U/L (46-116) Creatine Kinase 612 U/L (39-308) Troponin I Quantitative 0.038 ng/mL (0.000-0.055) 0.018 ng/mL (0.000-0.055) SQ-Obt-R-Type Natriuretic Peptide 131 pg/mL (0-124) Total Protein 7.4 g/dL (6.4-8.2) Albumin 3.2 g/dL (3.4-5.0) Albumin/Globulin Ratio 0.8 (1.0-1.7) Urine Opiates Screen Neg (NEG) Urine Methadone Screen Neg (NEG) Urine Barbiturates Neg (NEG) Urine Phencyclidine Screen Neg (NEG) Urine Amphetamine/Methamphetamine Pos (NEG) Urine Benzodiazepines Screen Neg (NEG) Urine Cocaine Screen Neg (NEG) Urine Cannabinoids Screen Neg (NEG) Urine Ethyl Alcohol Neg (NEG) Laboratory Tests Test 01/07/19 18:30 01/08/19 04:30 Troponin I Quantitative 0.018 ng/mL (0.000-0.055) Sodium Level 142 mmol/L (136-145) Potassium Level 3.8 mmol/L (3.5-5.1) Chloride Level 105 mmol/L (98-107) Carbon Dioxide Level 28 mmol/L (21-32) Anion Gap 9 (6-14) Blood Urea Nitrogen 11 mg/dL (8-26) Creatinine 1.1 mg/dL (0.7-1.3) Estimated GFR (Cockcroft-Gault) 86.4 Glucose Level 146 mg/dL (70-99) Calcium Level 8.3 mg/dL (8.5-10.1) Images Images BRAIN W/O CONTRAST History: TIA. Hypertensive encephalopathy. Technique: Multiplanar, multi sequential MR imaging was performed of the brain without contrast. Comparison: CT January 06, 2019 Findings: No acute infarct. No intracranial hemorrhage. No mass effect. No hydrocephalus. Extra-axial spaces are unremarkable. Incidentally noted pineal cyst measures 8 mm. Imaged orbits are unremarkable. Imaged paranasal sinuses and mastoid air cells are clear. Impression: 1. No acute intracranial abnormality. 2. Incidental pineal cyst. Assessment/Plan Assessment/Plan Impression: Hypertensive and toxic encephalopathy, note positive from methamphetamine in the urine. No sign of stroke or transient ischemic attack Recommendations: No additional studies needed He could take a daily aspirin, I told him I told him to take his blood pressure medications and not use methamphetamine. Okay for discharge Follow-up with neurology as needed. Thank you for letting me help with the patient�s care. FARZANA TALAMANTES MD Jan 08, 2019 15:24
[2019-01-08 15:50] VITALS: BP 157/83
[2019-01-08] MEDS ORDERED: TRIAMCINOLONE ACETONIDE 0.1% TOPICAL CREAM 15GM TUBE. TP SCH (16:30)
--- NOTE | 2019-01-08 17:23 | PDOC3 ---
Discharge Summary Date of Admission: Jan 07, 2019 Date of Discharge: Jan 08, 2019 Follow-Up: 3-5 days Admitting Diagnosis comment: Assessment/Plan Assessment/Plan discharge dx No acute intracranial hemorrhage. 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 morbid obesity HX METH ABUSE ////POS IN URINE noncompliance toxic metabolic encephalopathy PLAN IV BP CONTROL ADMIT d/c 01/08 Neurology consult, suspect stroke like symptoms tele echo UDSpos meth NORVASC 5 MG PO DAILY HCTZ 12.5 MG PO DAILY LOW NA INTAKE DVT PROPHYLAXIS neurochecks q 4 hrs cardiology consult ok with d/c PT/OT/ST 36 MIN PT EXAM, CHART REVIEW d/c planning, > 50% OF TIME SPENT WITH EXAM, CHART REVIEW, PT CARE COORDINATION Vitals Vitals Vital Signs Date Time Temp Pulse Resp B/P (MAP) Pulse Ox O2 Delivery O2 Flow Rate FiO2 01/08/19 09:11 70 154/83 01/08/19 08:00 Room Air 01/08/19 07:57 98.4 20 99 98.4 Physical Exam General: Alert, Oriented X3, Cooperative, No acute distress Heart: Regular rate, Normal S1 Lungs: Clear Abdomen: Normal bowel sounds, Soft Extremities: No clubbing, No cyanosis, No edema FINAL DIAGNOSIS Problems Medical Problems: (1) Headache Status: Acute (2) Hypertensive urgency Status: Acute (3) Methamphetamine abuse Status: Acute (4) Pineal gland cyst Status: Acute Brief Hospital Course Mr. Huang is a 48 old [sex] who presented with [hypertension, meth abuse ] CONDITION AT DISCHARGE: Improved Discharge Medications Current Medications Hydralazine HCl (Apresoline Inj) 10 mg 1X ONCE IVP Last administered on 01/06/19at 22:45; Start 01/06/19 at 22:00; Stop 01/06/19 at 22:01; Status DC Ketorolac Tromethamine (Toradol 30mg Vial) 30 mg 1X ONCE IV Last administered on 01/06/19at 23:43; Start 01/06/19 at 23:30; Stop 01/06/19 at 23:31; Status DC Acetaminophen (Tylenol) 650 mg PRN Q6HRS PRN PO MILD PAIN / TEMP Last administered on 01/07/19at 05:45; Start 01/07/19 at 05:30; Stop 01/07/19 at 16:51; Status DC Amlodipine Besylate (Norvasc) 5 mg 1X ONCE PO Last administered on 01/07/19at 16:39; Start 01/07/19 at 16:45; Stop 01/07/19 at 16:46; Status DC Amlodipine Besylate (Norvasc) 5 mg DAILY PO Last administered on 01/08/19at 09:11; Start 01/08/19 at 09:00 Sodium Chloride (Normal Saline Flush) 3 ml QSHIFT PRN IV AFTER MEDS AND BLOOD DRAWS; Start 01/07/19 at 16:45 Ondansetron HCl (Zofran) 4 mg PRN Q4HRS PRN IV NAUSEA/VOMITING; Start 01/07/19 at 16:45 Acetaminophen (Tylenol) 650 mg PRN Q4HRS PRN PO TEMP OVER 100.4F OR MILD PAIN Last administered on 01/08/19at 16:50; Start 01/07/19 at 16:45 Al Hydroxide/Mg Hydroxide (Mylanta Plus Xs) 30 ml PRN DAILY PRN PO HEARTBURN / GAS; Start 01/07/19 at 16:45 Clonidine HCl (Catapres) 0.1 mg PRN Q6HRS PRN PO SBP>160 OR DBP>90; Start 01/07/19 at 16:45 Sodium Monofluorophosphate (Fleet Adult) 133 ml PRN DAILY PRN SD CONSTIPATION; Start 01/07/19 at 16:45 Docusate Sodium (Colace) 100 mg PRN BID PRN PO CONSTIPATION; Start 01/07/19 at 16:45 Albuterol Sulfate (Ventolin Neb Soln) 2.5 mg PRN Q4HRS PRN NEB SHORTNESS OF BREATH; Start 01/07/19 at 16:45 Guaifenesin (Robitussin) 200 mg PRN Q4HRS PRN PO COUGH; Start 01/07/19 at 16:45 Lorazepam (Ativan) 0.5 mg PRN Q4HRS PRN PO ANXIETY / AGITATION; Start 01/07/19 at 16:45 Enoxaparin Sodium (Lovenox 40mg Syringe) 40 mg QHS SQ Last administered on 01/07/19at 21:03; Start 01/07/19 at 21:00 Potassium Chloride (Klor-Con) 40 meq 1X ONCE PO Last administered on 01/07/19at 18:18; Start 01/07/19 at 17:00; Stop 01/07/19 at 17:01; Status DC Potassium Chloride (Klor-Con) 20 meq DAILYWBKFT PO Last administered on 01/08/19at 09:11; Start 01/08/19 at 08:00 Triamcinolone Acetonide (Kenalog 0.1%) 1 trace BID TP Last administered on 01/08/19at 16:50; Start 01/08/19 at 16:30 Vital Signs Vital Signs Date Time Temp Pulse Resp B/P (MAP) Pulse Ox O2 Delivery O2 Flow Rate FiO2 01/08/19 15:50 97.8 64 16 157/83 (107) 97 Room Air 97.8 Labs Laboratory Tests Test 01/06/19 21:20 01/06/19 22:44 01/07/19 18:30 01/08/19 04:30 White Blood Count 7.3 x10^3/uL (4.0-11.0) Red Blood Count 4.54 x10^6/uL (4.30-5.70) Hemoglobin 13.1 g/dL (13.0-17.5) Hematocrit 39.7 % (39.0-53.0) Mean Corpuscular Volume 87 fL (79-100) Mean Corpuscular Hemoglobin 29 pg (25-35) Mean Corpuscular Hemoglobin Concent 33 g/dL (31-37) Red Cell Distribution Width 16.5 % (11.5-14.5) Platelet Count 326 x10^3/uL (140-400) Neutrophils (%) (Auto) 63 % (31-73) Lymphocytes (%) (Auto) 23 % (24-48) Monocytes (%) (Auto) 11 % (0-9) Eosinophils (%) (Auto) 2 % (0-3) Basophils (%) (Auto) 1 % (0-3) Neutrophils # (Auto) 4.6 x10^3/uL (1.8-7.7) Lymphocytes # (Auto) 1.7 x10^3/uL (1.0-4.8) Monocytes # (Auto) 0.8 x10^3/uL (0.0-1.1) Eosinophils # (Auto) 0.2 x10^3/uL (0.0-0.7) Basophils # (Auto) 0.1 x10^3/uL (0.0-0.2) Prothrombin Time 12.7 SEC (11.7-14.0) Prothromb Time International Ratio 1.0 (0.8-1.1) Sodium Level 144 mmol/L (136-145) 142 mmol/L (136-145) Potassium Level 3.4 mmol/L (3.5-5.1) 3.8 mmol/L (3.5-5.1) Chloride Level 105 mmol/L (98-107) 105 mmol/L (98-107) Carbon Dioxide Level 26 mmol/L (21-32) 28 mmol/L (21-32) Anion Gap 13 (6-14) 9 (6-14) Blood Urea Nitrogen 10 mg/dL (8-26) 11 mg/dL (8-26) Creatinine 1.2 mg/dL (0.7-1.3) 1.1 mg/dL (0.7-1.3) Estimated GFR (Cockcroft-Gault) 78.2 86.4 BUN/Creatinine Ratio 8 (6-20) Glucose Level 148 mg/dL (70-99) 146 mg/dL (70-99) Calcium Level 8.4 mg/dL (8.5-10.1) 8.3 mg/dL (8.5-10.1) Magnesium Level 2.2 mg/dL (1.8-2.4) Total Bilirubin 0.3 mg/dL (0.2-1.0) Aspartate Amino Transf (AST/SGOT) 26 U/L (15-37) Alanine Aminotransferase (ALT/SGPT) 23 U/L (16-63) Alkaline Phosphatase 61 U/L (46-116) Creatine Kinase 612 U/L (39-308) Troponin I Quantitative 0.038 ng/mL (0.000-0.055) 0.018 ng/mL (0.000-0.055) ST-Xjz-G-Type Natriuretic Peptide 131 pg/mL (0-124) Total Protein 7.4 g/dL (6.4-8.2) Albumin 3.2 g/dL (3.4-5.0) Albumin/Globulin Ratio 0.8 (1.0-1.7) Urine Opiates Screen Neg (NEG) Urine Methadone Screen Neg (NEG) Urine Barbiturates Neg (NEG) Urine Phencyclidine Screen Neg (NEG) Urine Amphetamine/Methamphetamine Pos (NEG) Urine Benzodiazepines Screen Neg (NEG) Urine Cocaine Screen Neg (NEG) Urine Cannabinoids Screen Neg (NEG) Urine Ethyl Alcohol Neg (NEG) Laboratory Tests Test 01/07/19 18:30 01/08/19 04:30 Troponin I Quantitative 0.018 ng/mL (0.000-0.055) Sodium Level 142 mmol/L (136-145) Potassium Level 3.8 mmol/L (3.5-5.1) Chloride Level 105 mmol/L (98-107) Carbon Dioxide Level 28 mmol/L (21-32) Anion Gap 9 (6-14) Blood Urea Nitrogen 11 mg/dL (8-26) Creatinine 1.1 mg/dL (0.7-1.3) Estimated GFR (Cockcroft-Gault) 86.4 Glucose Level 146 mg/dL (70-99) Calcium Level 8.3 mg/dL (8.5-10.1) Allergies Allergies Coded Allergies Type Severity Reaction Last Updated Verified lisinopril Allergy Unknown Swelling 01/06/19 Yes Disposition/Orders: D/C to Home Patient Instructions d/c planning 39 min JEN JIMENEZ MD Jan 08, 2019 17:22
[2019-01-08] MEDS ORDERED: TRIA15CR3 TP (17:26)
[2019-01-08] MEDS ORDERED: AMLO5TAB10 PO (17:26)
--- NOTE | 2019-01-08 17:27 | DISCH ---
DISCHARGE INSTRUCTIONS Condition on Discharge Condition on Discharge: Guarded Activity After Discharge Activity Instructions for Disc: Activity as tolerated Lifting Instructions after Dis: No heavy lifting, No pulling or pushing Exercise Instruction after Dis: Walk 10 min, 3 x per day Driving Instructions after Dis: Do not drive Weight Bearing Status after Di: Full weight bearing, As tolerated, Partial weight bearing Diet after Discharge Diet after Discharge: Cardiac Checks after Discharge Checks after discharge: Check blood press - daily Contacting the DR. after DC Call your doctor for: If your condition worsens JEN JIMENEZ MD Jan 08, 2019 17:27
--- NOTE | 2019-01-08 17:39 | EKG ---
[facility] [address] [place] [address] Test Date: 2019-01-08 Test Time: 18:36:12 Pat Name: NERY TORREZ Department: Room: [facility] Gender: M Electrical Solderer: : 1970 Requested By: CHAY MCCLAIN Order Number: [id number] Reading MD: Chay Mcclain MD Measurements Intervals [place] Rate: 51 P: 37 [place]: 144 QRS: 5 QRSD: 92 T: -48 QT: 426 QTc: 394 Interpretive Statements SINUS RHYTHM T ABNORMALITY IN ANTERIOR LEADS INFERIOR LEADS Electronically Signed On 01-09-2019 6:55:53 CDT by Chay Mcclain MD
--- NOTE | 2019-01-08 17:47 | CONS ---
DATE OF CONSULTATION: 01/08/2019 REASON FOR CONSULTATION: Elevated blood pressure. HISTORY OF PRESENT ILLNESS: The patient is a 48-year-old man who presented to the hospital in the setting of hypertension and some episodes suggestive of a TIA. He apparently has been not taking his blood pressure medications over the last several months. He denies any exertional dyspnea, orthopnea, PND or lower extremity edema. His initial stroke workup has been unremarkable. He denies any drug or alcohol use and states that he took Adderall, which apparently was a reason for the abnormal laboratory test on his arrival to the hospital. PAST MEDICAL HISTORY: Notable for hypertension, otherwise unremarkable. SOCIAL HISTORY: He used to use methamphetamine year or so ago. Currently, states that he only uses Adderall for attention issues. He currently works in construction. FAMILY HISTORY: Notable for hypertension. No early coronary artery disease. REVIEW OF SYSTEMS: Negative for 10 out of 14 systems reviewed, unless otherwise mentioned above in HPI. ALLERGIES: PRESUMABLY HE HAS ALLERGIES TO LISINOPRIL, but he states that he took it at home. MEDICATIONS: Currently on Amlodipine. PHYSICAL EXAMINATION: VITAL SIGNS: Afebrile, heart rate 64, respiration 16, blood pressure 157/83. Upon initial arrival to the hospital, he was in the 200s/100. GENERAL: He is alert and oriented, no acute distress. HEAD AND NECK: Unremarkable. CARDIAC: Regular rate and rhythm without murmurs, rubs or gallops. LUNGS: Clear to auscultation anteriorly. ABDOMEN: Soft, obese, nontender, nondistended. EXTREMITIES: No obvious clubbing, cyanosis or edema. NEUROLOGIC: No focal deficits. DIAGNOSTIC STUDIES: Brain MRI is unremarkable. Chest x-ray is unremarkable. EKG demonstrates anterior T-wave changes and ST segment changes suggestive of ischemia and injury. Cardiac enzymes are negative x 2. Echocardiogram is unremarkable for any acute wall motion abnormalities with preserved LV function. IMPRESSION: 1. Hypertension with likely hypertensive EKG changes. 2. Possible drug abuse, although the patient denies. 3. Possible transient ischemic attack, but ruled out according to neurologic evaluation. RECOMMENDATIONS: If he truly is allergic to LISINOPRIL agree with initiation of amlodipine and continuation of his hydrochlorothiazide. At this present time, no further cardiac workup necessary. We will repeat an EKG to ensure that there are no progressive changes. If repeat EKG is unremarkable, the patient may be discharged with followup as needed. Thank you for this consultation. CHAY MCCLAIN MD DR: GENET/amber JOB#: [id number] / [id number]
== END 2019-01-08 18:00 | disposition home or self-care (01) | DRG 304 ==
LOC: ER 21:09 → ED HOLD 23:24 → 6 SOUTH 01-07 03:51
PROVIDERS: ADMIT Internal Medicine; ATTEND Internal Medicine
DX: I16.0 Hypertensive urgency (principal); G92 Toxic encephalopathy; I67.4 Hypertensive encephalopathy; E66.01 Morbid (severe) obesity due to excess calories; F15.10 Other stimulant abuse, uncomplicated; I10 Essential (primary) hypertension; Z82.49 Family history of ischemic heart disease and other diseases of the circulatory system; Z86.73 Personal history of transient ischemic attack (TIA), and cerebral infarction without residual deficits; Z91.14 Patient's other noncompliance with medication regimen; Z91.19 Patient's noncompliance with other medical treatment and regimen; Z68.34 Body mass index [BMI] 34.0-34.9, adult; Z88.8 Allergy status to other drugs, medicaments and biological substances
CPT/HCPCS: 36415; 70450; 70551; 71046; 80048; 80053; 80307; 82550; 83735; 83880; 84484; 85025; 85610; 93005; 93306; 96374; 96375; J0360; J1650; J1885; 97116; 99285-25; G0378

== ENCOUNTER 2019-04-05 20:56 | Emergency (ER) | payer SELFPAY ==
[~2019-04-05] VITALS: Ht 180.3 cm; Wt 108.9 kg
[~2019-04-05 20:56] MED LIST: AMLO5TAB10 PO; TRIA15CR3 TP
[2019-04-05] MEDS ORDERED: IV NORMAL SALINE 1000ML BAG 1,000 ML IV SCH (21:09)
[2019-04-05 21:24] LABS: BASO % 1 % (0-3); EOS % 1 % (0-3); HEMATOCRIT 42.1 % (39.0-53.0); HEMOGLOBIN 13.9 g/dL (13.0-17.5); LYMPH # 1.4 x10^3/uL (1.0-4.8); LYMPH % 23 % (24-48); MEAN CORPUSCULAR HEMOGLOBIN 29 pg (25-35); MEAN CORPUSCULAR HGB CONC 33 g/dL (31-37); MEAN CORPUSCULAR VOLUME 87 fL (79-100); MONO # 0.7 x10^3/uL (0.0-1.1); MONO % 11 % (0-9); NEUT % 65 % (31-73); PLATELET COUNT 323 x10^3/uL (140-400); RED BLOOD COUNT 4.83 x10^6/uL (4.30-5.70); RED CELL DISTRIBUTION WIDTH 17.2 % (11.5-14.5); WHITE BLOOD COUNT 6.2 x10^3/uL (4.0-11.0)
[2019-04-05 21:33] LABS: CALCIUM 8.5 mg/dL (8.5-10.1); CREATININE 1.7 mg/dL (0.7-1.3); GFR 52.3; POTASSIUM 3.3 mmol/L (3.5-5.1); PROTHROMBIN TIME PATIENT 13.3 SEC (11.7-14.0)
[2019-04-05 21:38] LABS: ALBUMIN 3.4 g/dL (3.4-5.0); ALBUMIN/GLOBULIN RATIO 0.9 (1.0-1.7); TOTAL BILIRUBIN 0.5 mg/dL (0.2-1.0); TOTAL PROTEIN 7.2 g/dL (6.4-8.2)
--- NOTE | 2019-04-05 21:40 | RAD ---
CT HEAD AND CERVICAL SPINE WO dated 04/05/2019 9:22 PM. Comparison: None. Clinical Indication: Pain after injury.. Technical factors: Contiguous 5 mm axial images of the head were obtained from the skullbase to the vertex. No contrast was administered. In addition, 3 mm axial images of the cervical spine were acquired with thin cut coronal and sagittal reconstructions. One or more of the following individualized dose reduction techniques were utilized for this examination: 1. Automated exposure control 2. Adjustment of the mA and/or kV according to patient size 3. Use of iterative reconstruction technique Findings head: Ventricles and sulci are within normal limits for age. No evidence of ventricular shift or mass effect. Brain parenchyma is of normal attenuation. There is no evidence of hemorrhage or extra-axial collection. Visualized paranasal sinuses and mastoid air cells are clear. No acute osseous abnormality. IMPRESSION HEAD: No evidence of acute intracranial abnormality. Findings cervical spine: Images were acquired from the skull base to mid T3. There is straightening of the normal cervical lordosis, otherwise sagittal alignment is anatomic. Vertebral body heights are maintained. No prevertebral soft tissue swelling. Posterior elements are intact. No fractures are identified. Mild to moderate endplate hypertrophic changes throughout with multilevel uncovertebral spurring and facet arthropathy. There is resultant mild bilateral foraminal stenosis at C6-C7 and C5-C6. No focal disc herniation. Central canal is adequate. Visualized soft tissue structures unremarkable. Limited images of the lung apices are clear. IMPRESSION CERVICAL SPINE: 1. No evidence of fracture or malalignment. 2. Mild multilevel cervical spondylosis. Electronically signed by: Sam Briscoe MD (04/05/2019 9:37 PM) [facility]
--- NOTE | 2019-04-05 22:20 | RAD ---
Two-view right tibia-fibula and three-view right foot dated 04/05/2019. No comparison available. CLINICAL INDICATION: Pain after injury. FINDINGS: 2 views right tibia-fibula show a comminuted spiral fracture of the distal one third tibial shaft. There is linear extension to the metaphysis with no definite intra-articular extension. There is mild displacement. The distal fibula is intact. No apparent proximal fracture. 3 views the right foot show normal bony alignment. No displaced fracture. No acute osseous or articular abnormality. Possible small bone fragment near the tip of the medial malleolus seen on only one view. Diffuse soft tissue swelling. Mild degenerative change of the first MTP joint. IMPRESSION: 1. Complex spiral fracture of the distal tibia, minimally displaced. 2. Possible small curvilinear avulsion fracture or chip fracture off the tip of the medial malleolus. Electronically signed by: Sam Briscoe MD (04/05/2019 10:17 PM) [facility]
--- NOTE | 2019-04-05 22:22 | RAD ---
Single view pelvis and 3 view bilateral knee dated 04/05/2019. No comparison available. Clinical data indication: Pain after injury. FINDINGS: Single AP view pelvis shows normal bony alignment. Intact pelvic ring. No acute osseous or articular abnormality. Mild degenerative change of the bilateral hip joint, left greater than right. 3 views of bilateral knees show normal bony alignment. No displaced fracture. No acute osseous or articular abnormality. No apparent joint effusion or loose body. IMPRESSION: No acute radiographic abnormality. Electronically signed by: Sam Briscoe MD (04/05/2019 10:19 PM) [facility]
--- NOTE | 2019-04-05 22:23 | RAD ---
Single view chest dated 04/05/2019: Comparison made to 01/06/2019. Clinical Indication: Pain after injury.. Findings: Single supine portable exam of the chest was performed. Heart size and mediastinal contours are within normal limits given technique. The lungs are clear without evidence of focal consolidation. Vascular interstitium is within normal limits. Impression:: No acute radiographic abnormality. Electronically signed by: Sam Briscoe MD (04/05/2019 10:20 PM) [facility]
[2019-04-05] MEDS ORDERED: fentaNYL PF VIAL 100 MCG/2 ML VIAL ONE (22:56)
[2019-04-05] MEDS ORDERED: fentaNYL PF VIAL 100 MCG/2 ML VIAL IVP ONE (23:00)
[2019-04-05] MEDS ORDERED: BACITRACIN TOPICAL OINT PACKET. TP ONE (23:48)
[2019-04-05] MEDS ORDERED: CYCL10TA2 PO (23:55)
[2019-04-05] MEDS ORDERED: HYDR-3164 PO (23:55)
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
[2019-04-06] VITALS: BP 156/80
[2019-04-06] MEDS ORDERED: fentaNYL PF VIAL 100 MCG/2 ML VIAL IVP ONE
[2019-04-13] MEDS ORDERED: HYDR-2145 PO (23:59)
[2019-04-14] MEDS ORDERED: ACET500T68 PO (07:13)
== END 2019-04-06 00:42 | disposition home or self-care (01) ==
LOC: ER 20:56
DX: S82.301A Unspecified fracture of lower end of right tibia, initial encounter for closed fracture (principal); S90.31XA Contusion of right foot, initial encounter; S80.02XA Contusion of left knee, initial encounter; S00.83XA Contusion of other part of head, initial encounter; I10 Essential (primary) hypertension; E87.6 Hypokalemia; N28.9 Disorder of kidney and ureter, unspecified; R51 Headache; Z88.8 Allergy status to other drugs, medicaments and biological substances; V03.90XA Pedestrian on foot injured in collision with car, pick-up truck or van, unspecified whether traffic or nontraffic accident, initial encounter; Y92.410 Unspecified street and highway as the place of occurrence of the external cause; Y93.89 Activity, other specified; Y99.8 Other external cause status
CPT/HCPCS: 12011; 29515; 36415; 70450; 71045; 72125; 72170; 73562; 73590; 73630; 80053; 85025; 85610; 99291; 99292; G0480; J3010; J7030

== ENCOUNTER 2019-04-30 13:22 | Emergency (ER) | payer SELFPAY ==
[~2019-04-30] VITALS: Ht 180.3 cm; Wt 104.3 kg
[~2019-04-30 13:22] MED LIST changes: +ACET500T68 PO; +AMLO10TA8 PO; +ASPI-612 PO; +CYCL10TA2 PO; +HYDR-2145 PO; +HYDR-2868 PO; +HYDR-3164 PO; +ISOS60TA2 PO
[2019-04-30 13:34] VITALS: BP 166/102
[2019-04-30] MEDS ORDERED: OXYC1TAB15 PO (15:07)
--- NOTE | 2019-04-30 15:07 | PHYS DOC ---
Past Medical History Past Medical History: Hypertension (ABHILASH DIETZ APRN) Past Surgical History: Other Additional Past Surgical Histo: RIGHT ANKLE (ABHILASH DIETZ APRN) Alcohol Use: Occasionally Drug Use: Marijuana, Methamphetamine (ABHILASH DIETZ APRN) Attending Signature I have participated in the care of this patient and I have reviewed and agree with all pertinent clinical information above including history, exam, and recommendations. (YVETTE PABLO MD) Adult General Chief Complaint Chief Complaint: LOWER EXTREMITY SWELLING HPI HPI Patient is a 48 year old AA male who presents to the emergency department with complaints of left leg swelling and pain. Patient states that he has a fractured tibia that he sustained a week ago. He is currently wearing a cast that was placed by his orthopedic doctor. Patient states that his leg keeps swelling and that he has been out of his pain medication, oxycodone 5/325 mg tablets since yesterday. He denies any new injury. Patient states he has been elevating the leg at home as much as he can. He denies any fever, numbness, or tingling of the affected extremity. He currently rates the pain at 8 out of 10 on the pain scale, he denies any alleviating factors. All other ROS is neg unless otherwise noted in HPI. (ABHILASH DIETZ APRN) Review of Systems Review of Systems See Above (ABHILASH DIETZ APRN) Allergies Allergies Allergies Coded Allergies Type Severity Reaction Last Updated Verified lisinopril Allergy Intermediate Swelling 04/13/19 Yes (YVETTE PABLO MD) Physical Exam Physical Exam See Above Constitutional: Well developed, well nourished, no acute distress, non-toxic appearance. [] HENT: Normocephalic, atraumatic, bilateral external ears normal, nose normal. [] Eyes: PERRLA, EOMI, conjunctiva normal, no discharge. [] Neck: Normal range of motion, no stridor. [] Cardiovascular:Heart rate regular rhythm Lungs & Thorax: verbalized an understanding of home care, medications, follow- up, and return to ED instructions and was in agreement with the plan of care. Skin: Warm, dry, no erythema, no rash. [] Extremities: LLE: No cyanosis, no clubbing, no edema, cap refill <2 seconds, able to insert a finger into the proximal and distal ends of the cast without difficulty. Neurologic: Alert and oriented X 3, no focal deficits noted. [] Psychologic: Affect normal, judgement normal, mood normal. [] (ABHILASH DIETZ APRN) Current Patient Data Vital Signs Vital Signs Date Time Temp Pulse Resp B/P (MAP) Pulse Ox O2 Delivery O2 Flow Rate FiO2 04/30/19 13:34 98.4 94 18 166/102 (123) 99 Room Air 98.4 (YVETTE PABLO MD) EKG EKG [] (ABHILASH DIETZ APRN) Radiology/Procedures Radiology/Procedures [] (ABHILASH DIETZ APRN) Course & Med Decision Making Course & Med Decision Making Pertinent Labs and Imaging studies reviewed. (See chart for details) 1459- Spoke with Dr. Urban and advised of pt in the ER. Advised Dr. bailey gallardo that I was able to insert one finger into the cast at both ends, the toes and the leg. There is no redness or warmth appreciated. Advised Dr. Urban patient also reports he has been out of oxycodone since yesterday. Per Dr. Urban will refill oxycodone #20 and have patient follow-up in the office next week. [] (ABHILASH DIETZ APRN) Dragon Disclaimer Dragon Disclaimer This electronic medical record was generated, in whole or in part, using a voice recognition dictation system. (ABHILASH DIETZ APRN) Departure Departure Impression: Primary Impression: Cast in place on lower extremity Additional Impressions: Cast discomfort Has run out of medications Disposition: 01 HOME, SELF-CARE Condition: STABLE Referrals: NO PCP (PCP) BAILEE URBAN II, MD Patient Instructions: Cast Care-Brief Additional Instructions: Fill the prescription and use it as directed for pain. Keep the affected extremity elevated. Recommend lots of rest and limit activity. Follow-up with Dr. Urban in his office next week. Return to the ER if symptoms worsen. Scripts Oxycodone/Apap 5-325 (PERCOCET 5-325 MG TABLET ) 1 Each Tablet 1 TAB PO QIDPRN PRN for PAIN MDD 4 Tablet(s) for 5 Days, #20 TAB 0 Refills Prov: ABHILASH DIETZ APRN 04/30/19 Problem Qualifiers ABHILASH DIETZ APRN Apr 30, 2019 15:07 YVETTE PABLO MD May 01, 2019 19:02
== END 2019-04-30 15:11 | disposition home or self-care (01) ==
LOC: ER 13:22
DX: M79.662 Pain in left lower leg (principal); Z47.89 Encounter for other orthopedic aftercare; I10 Essential (primary) hypertension; F12.90 Cannabis use, unspecified, uncomplicated; Z88.1 Allergy status to other antibiotic agents
CPT/HCPCS: 99283; 99284

== ENCOUNTER 2019-06-10 21:15 | Emergency (ER) | payer SELFPAY ==
[~2019-06-10] VITALS: Ht 180.3 cm; Wt 99.8 kg
[~2019-06-10 21:15] MED LIST changes: +OXYC1TAB15 PO
[2019-06-10] MEDS: HYDROcodone/APAP 5/325MG 1 TAB TABLET PO ONE (22:33)
[2019-06-10] MEDS: cloNIDine HCL 0.1 MG TABLET PO ONE (22:34)
--- NOTE | 2019-06-10 23:04 | RAD ---
Right foot 3 views. HISTORY: Fall 3 views were taken of the right foot. There is a fracture of the tibia. A foot fracture is not identified. Images were taken through a cast. IMPRESSION: 1. Right tibia fracture. 2. No acute fracture or osseous abnormality in the right foot. 3. Some limitations in imaging due to the cast. Electronically signed by: Sammy Carpenter MD (06/10/2019 11:01 PM) [facility]
--- NOTE | 2019-06-10 23:06 | RAD ---
Examination: 2 views of the right tibia and fibula HISTORY: History of fall COMPARISON: 04/21/2019. Findings/ impression: Cast obscures fine bony detail. The previously visualized comminuted distal tibial diaphyseal fracture is again identified with some callus formation about it. There is likely new nondisplaced comminuted fracture of the tibial mid diaphysis. There is lucency projecting over the mid diaphysis of the fibula could be artifactual, however evaluation of the fibula is somewhat limited due to rotation of the leg and overlying cast. Electronically signed by: Nicholas Reddy MD (06/10/2019 11:03 PM) [id number]
[2019-06-11 00:01] VITALS: BP 175/103
[2019-06-11] MEDS ORDERED: HYDR-3164 PO (00:28)
--- NOTE | 2019-06-11 00:28 | PHYS DOC ---
Past Medical History Past Medical History: Hypertension (GO BARRAGAN APRN) Past Surgical History: Other Additional Past Surgical Histo: RIGHT ANKLE (GO BARRAGAN APRN) Alcohol Use: None Drug Use: Marijuana, Methamphetamine (GO BARRAGAN APRN) Attending Signature I have participated in the care of this patient and I have reviewed and agree with all pertinent clinical information above including history, exam, and recommendations. (YVETTE PABLO MD) Adult General Chief Complaint Chief Complaint: LOWEREXTREMITY INJURY HPI HPI Patient is a 48 year old male with history of hypertension who presents to the ED today stating he could've refractured his right lower extremity. He states he was working on a short ladder, he reports was going down the ladder when his right leg got caught in one of the rungs and he fell down. Denies any loss of consciousness. He reports your ED has a right tib-fib fracture diagnosed around April 13, 2019 currently in a cast. (GO BARRAGAN APRN) Review of Systems Review of Systems Constitutional: Denies fever or chills [] Musculoskeletal: Reports RLE pain Integument: Denies rash or skin lesions [] Neurologic: Denies headache, focal weakness or sensory changes [] All other systems were reviewed and found to be within normal limits, except as documented in this note. (GO BARRAGAN APRN) Current Medications Current Medications Current Medications Medications (Trade) Dose Ordered Sig/Percy Start Time Stop Time Status Last Admin Dose Admin Acetaminophen/ Hydrocodone Bitart (Lortab 5/325) 2 tab 1X ONCE 06/10/19 22:30 06/10/19 22:31 DC 06/10/19 22:33 2 TAB Clonidine HCl (Catapres) 0.2 mg 1X ONCE 06/10/19 22:30 06/10/19 22:31 DC 06/10/19 22:34 0.2 MG (YVETTE PABLO MD) Allergies Allergies Allergies Coded Allergies Type Severity Reaction Last Updated Verified lisinopril Allergy Intermediate Swelling 04/13/19 Yes (YVETTE PABLO MD) Physical Exam Physical Exam Constitutional: Well developed, well nourished, no acute distress, non-toxic appearance. [] Skin: Warm, dry, no erythema, no rash. [] Back: No tenderness, no CVA tenderness. [] Extremities: Right lower extremity is in a cast. Full range of motion to the right toes. Cap refill less than 2 seconds the right toes. Neurologic: Alert and oriented X 3, normal motor function, normal sensory function, no focal deficits noted. [] Psychologic: Affect normal, judgement normal, mood normal. [] (GO BARRAGAN APRN) Current Patient Data Vital Signs Vital Signs Date Time Temp Pulse Resp B/P (MAP) Pulse Ox O2 Delivery O2 Flow Rate FiO2 06/11/19 00:01 76 23 175/103 (127) 98 Room Air 06/10/19 21:20 98.1 98.1 (YVETTE PABLO MD) EKG EKG [] (GO BARRAGAN APRN) Radiology/Procedures Radiology/Procedures []PROCEDURE: FOOT RIGHT 3V Right foot 3 views. HISTORY: Fall 3 views were taken of the right foot. There is a fracture of the tibia. A foot fracture is not identified. Images were taken through a cast. IMPRESSION: 1. Right tibia fracture. 2. No acute fracture or osseous abnormality in the right foot. 3. Some limitations in imaging due to the cast. Electronically signed by: Sammy Carpenter MD (06/10/2019 11:01 PM) [facility] DICTATED and SIGNED BY: SAMMY CARPENTER MD DATE: 06/10/192300 PROCEDURE: TIBIA FIBULA RIGHT Examination: 2 views of the right tibia and fibula HISTORY: History of fall COMPARISON: 04/21/2019. Findings/ impression: Cast obscures fine bony detail. PROCEDURE: TIBIA FIBULA RIGHT Examination: 2 views of the right tibia and fibula HISTORY: History of fall COMPARISON: 04/21/2019. Findings/ impression: Cast obscures fine bony detail. The previously visualized comminuted distal tibial diaphyseal fracture is again identified with some callus formation about it. There is likely new nondisplaced comminuted fracture of the tibial mid diaphysis. There is lucency projecting over the mid diaphysis of the fibula could be artifactual, however evaluation of the fibula is somewhat limited due to rotation of the leg and overlying cast. Electronically signed by: Nicholas Reddy MD (06/10/2019 11:03 PM) [facility] DICTATED and SIGNED BY: NICHOLAS REDDY MD DATE: 06/10/192302 Electronically signed by: Nicholas Reddy MD (06/10/2019 11:03 PM) [facility] DICTATED and SIGNED BY: NICHOLAS REDDY MD DATE: 06/10/192302 (GO BARRAGAN APRN) Course & Med Decision Making Course & Med Decision Making Pertinent Labs and Imaging studies reviewed. (See chart for details) This is a 48-year-old male patient who presents to the ED today for violation of right lower extremity pain, patient believes she rebroke his tib-fib. He was working on a short ladder when his right leg got caught in the rungs. Right tib-fib x-rays interpreted by radiologist were noted for- previously visualized comminuted distal tibial diaphyseal fracture is again identified with some callus formation about it. There is likely new nondisplaced comminuted fracture of the tibial mid diaphysis. There is lucency projecting over the mid diaphysis of the fibula could be artifactual, however evaluation of the fibula is somewhat limited due to rotation of the leg and overlying cast. Patient follows up with Dr. Urban, requested him to get an appointment tomorrow in follow-up. He is already in a cast has crutches. Neurovascular exam is intact to the right lower extremity. (GO BARRAGAN APRN) Dragon Disclaimer Dragon Disclaimer This electronic medical record was generated, in whole or in part, using a voice recognition dictation system. (GO BARRAGAN APRN) Departure Departure Impression: Primary Impression: Tibia/fibula fracture, shaft Disposition: 01 HOME, SELF-CARE Condition: STABLE Referrals: NO PCP (PCP) BAILEE URBAN II, MD follow up tomorrow. Patient Instructions: Tibial Fracture, Adult Additional Instructions: Please call Dr. Urban in the morning and have him follow up with you tomorrow Scripts Hydrocodone/Apap 5-325 (NORCO 5-325 TABLET) 1 Each Tablet 1 TAB PO Q6-8HRS PRN for PAIN, #25 TAB Prov: GO BARRAGAN APRN 06/11/19 Problem Qualifiers Primary Impression: Tibia/fibula fracture, shaft Encounter type: initial encounter Fracture type: closed Laterality: right Qualified Codes: S82.201A - Unspecified fracture of shaft of right tibia, initial encounter for closed fracture; S82.401A - Unspecified fracture of shaft of right fibula, initial encounter for closed fracture GO BARRAGAN APRN Jun 11, 2019 00:28 YVETTE PABLO MD Jun 11, 2019 18:19
== END 2019-06-11 00:35 | disposition home or self-care (01) ==
LOC: ER 21:15
DX: S82.251A Displaced comminuted fracture of shaft of right tibia, initial encounter for closed fracture (principal); S82.454A Nondisplaced comminuted fracture of shaft of right fibula, initial encounter for closed fracture; I10 Essential (primary) hypertension; F12.90 Cannabis use, unspecified, uncomplicated; F13.90 Sedative, hypnotic, or anxiolytic use, unspecified, uncomplicated; Z98.890 Other specified postprocedural states; Z88.8 Allergy status to other drugs, medicaments and biological substances; W11.XXXA Fall on and from ladder, initial encounter; Y93.89 Activity, other specified; Y92.89 Other specified places as the place of occurrence of the external cause; Y99.8 Other external cause status
CPT/HCPCS: 73590; 73630; 99284

== ENCOUNTER 2019-06-17 13:19 | Emergency (ER) | payer SELFPAY ==
[~2019-06-17] VITALS: Ht 180.3 cm; Wt 99.8 kg
[2019-06-17 14:22] VITALS: BP 165/115
--- NOTE | 2019-06-17 15:44 | PHYS DOC ---
Past Medical History Past Medical History: Hypertension Past Surgical History: Other Additional Past Surgical Histo: RIGHT ANKLE Alcohol Use: None Drug Use: Marijuana, Methamphetamine Adult General Chief Complaint Chief Complaint: OTHER COMPLAINTS HPI HPI Patient is a 48 year old [male] who presents with [right leg pain. States he had fractured his tib-fib in april, had been released from hospital around 04/12 and had his leg placed in a cast with Ortho, Dr Urban at that time. States he had fallen a couple days ago, again had broken his tib-fib, while wea ring cast. Had been seen in this ER with imaging and was told to follow up with Orthopedics. states he has not followed up with orthopedics yet as they 'never answer the phone or call back'. states he is out of his pain medications now. ] Review of Systems Review of Systems Constitutional: Denies fever or chills [] Cardiovascular: No additional information not addressed in HPI [] GI: Denies abdominal pain, nausea, vomiting, bloody stools or diarrhea [] : Denies dysuria or hematuria [] Musculoskeletal: Denies back pain or joint pain, complains of pain to right lower leg. [] Integument: Denies rash or skin lesions [] Neurologic: Denies headache, focal weakness or sensory changes [] Endocrine: Denies polyuria or polydipsia [] All other systems were reviewed and found to be within normal limits, except as documented in this note. Allergies Allergies Allergies Coded Allergies Type Severity Reaction Last Updated Verified lisinopril Allergy Intermediate Swelling 04/13/19 Yes Physical Exam Physical Exam Constitutional: Well developed, well nourished, no acute distress, non-toxic appearance. [] Cardiovascular:Heart rate regular rhythm, no murmur [] Lungs & Thorax: Bilateral breath sounds clear to auscultation [] Abdomen: Bowel sounds normal, soft, no tenderness, no masses, no pulsatile masses. [] Skin: Warm, dry, no erythema, no rash. [] Back: No tenderness, no CVA tenderness. [] Extremities: No tenderness, no cyanosis, no clubbing, ROM intact, no edema. Right lower leg in cast. Sensation intact to digits. [place], brisk capillary refill, warm, no evidence of acute circulatory issue. [] Neurologic: Alert and oriented X 3, normal motor function, normal sensory function, no focal deficits noted. [] Psychologic: Affect normal, judgement normal, mood normal. [] Current Patient Data Vital Signs Vital Signs Date Time Temp Pulse Resp B/P (MAP) Pulse Ox O2 Delivery O2 Flow Rate FiO2 06/17/19 14:22 97.8 91 20 165/115 (132) 99 Room Air 97.8 EKG EKG [] Radiology/Procedures Radiology/Procedures [] Course & Med Decision Making Course & Med Decision Making Pertinent Labs and Imaging studies reviewed. (See chart for details) [Reviewed prior imaging of prior visit notes, patient was to follow up with orthopedics the day after he was seen. Patient reports he did not do any follow- up. Advised patient he needs to keep his follow-up appointments and make follow up appointment. Advised patient to attempt to call at this time to make a follow-up appointment. Advised patient that his legs in a cast, no further imaging is needed today, no further injury since his last visit here. Advised patient to continue to take anti-inflammatories for pain. Patient says he issues with another hospital" advised patient that orthopedics here has followed him already, has placed the cast, and his imaging is all done here. If he is leaving to save cost, as best efforts would be to stay with this orthopedics.] Dragon Disclaimer Dragon Disclaimer This electronic medical record was generated, in whole or in part, using a voice recognition dictation system. Departure Departure Impression: Primary Impression: Cast discomfort Disposition: 01 HOME, SELF-CARE Condition: STABLE Referrals: NO PCP (PCP) BAILEE URBAN II, MD Patient Instructions: Cast Care-Brief Additional Instructions: As we discussed, he needs to follow up with orthopedics. He may take Tylenol or ibuprofen for discomfort. Keep your leg elevated as needed. JENNIFER HUGGINS APRN Jun 17, 2019 15:43
== END 2019-06-17 16:16 | disposition home or self-care (01) ==
LOC: ER 13:19
DX: Z47.89 Encounter for other orthopedic aftercare (principal); M79.604 Pain in right leg; I10 Essential (primary) hypertension; Z88.8 Allergy status to other drugs, medicaments and biological substances
CPT/HCPCS: 99281